=== PATIENT | male | born 1935 | race Caucasian/White ===

== ENCOUNTER 2023-12-27 12:38 | Emergency (ER) | payer MEDICARE, SELFPAY ==
[2023-12-27 12:45] VITALS: BP 121/53; PULSE 75; RESP 18; TEMP 36.6; O2SAT 100
--- NOTE | 2023-12-27 13:55 | ED.GENADULT ---
HPI - General Adult General Chief complaint: Unspecified Stated complaint: dialysis catheter fell out Time Seen by Provider: 12/27/23 13:30 History of Present Illness HPI narrative: Patient is an 88-year-old male who presents ER after dislodging his dialysis catheter from his right chest. He was removing his shirt when it pulled out. No bleeding. He is not on a blood thinner. Has an indwelling Delgadillo catheter and is making about 600 mL in a 24 hour. No fevers or chills or sweats. No difficulty breathing. Catheter originally placed at the fall. He has been seeing Dr. Parmar. Related Data Allergies Allergy/AdvReac Type Severity Reaction Status Date / Time bee pollen Allergy Anaphylactic Verified 12/27/23 12:40 Shock Review of Systems Review of Systems: All systems reviewed & are unremarkable except as noted in HPI and below Constitutional: Constitutional: Reports no additional constitutional complaints ENT: Reports system reviewed and no additional complaints, except as documented Cardiovascular: Cardiovascular: Reports no additional cardiovascular complaints Respiratory: Respiratory: Reports no additional respiratory complaints Genitourinary: Genitourinary: Reports no additional male genitourinary complaints [facility] Past Medical History Medical History (Updated 12/27/23 @ 16:30 by Vasile Simms MD) 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 HEAD: Normocephalic, atraumatic. ENT: Mucous membranes moist. CHEST: Clear to auscultation. No respiratory distress. dialysis catheter site with sutures still in place right upper chest wall without bleeding. HEART: Regular rate and rhythm. Normal peripheral pulses. ABDOMEN: Soft, nontender, nondistended. EXTREMITIES: Normal range of motion. No edema. Weakness left upper extremity that is chronic from shoulder infection. SKIN: Warm, dry, no rash. NEURO: Alert and oriented x3. PSYCH: Normal mood and affect. Course Course Emergency Course: discussed with nephrology as well as General surgery. Patient can have an outpatient dialysis catheter placed. Patient and family given reassurance and education. Will give contact information for General surgery. hold warfarin for home which has been relayed to family. Vital Signs Vital signs: Vital Signs Temperature 97.8 F 12/27/23 12:45 Pulse Rate 75 12/27/23 12:45 Respiratory Rate 18 12/27/23 12:45 Blood Pressure 121/53 L 12/27/23 12:45 Pulse Oximetry 100 12/27/23 12:45 Oxygen Delivery Room Air 12/27/23 12:45 Temperature 97.8 F 12/27/23 12:45 Pulse Rate 71 12/27/23 15:54 Respiratory Rate 20 12/27/23 15:54 Blood Pressure 150/74 H 12/27/23 15:54 Pulse Oximetry 100 12/27/23 15:54 Oxygen Delivery Room Air 12/27/23 12:45 Medical Decision Making Vital Signs Vital Signs: Vital Signs Temperature 97.8 F 12/27/23 12:45 Pulse Rate 75 12/27/23 12:45 Respiratory Rate 18 12/27/23 12:45 Blood Pressure 121/53 L 12/27/23 12:45 Pulse Oximetry 100 12/27/23 12:45 Oxygen Delivery Room Air 12/27/23 12:45 Temperature 97.8 F 12/27/23 12:45 Pulse Rate 71 12/27/23 15:54 Respiratory Rate 20 12/27/23 15:54 Blood Pressure 150/74 H 12/27/23 15:54 Pulse Oximetry 100 12/27/23 15:54 Oxygen Delivery Room Air 12/27/23 12:45 Lab Data 12/27/23 14:20 12/27/23 14:20 Labs: Lab Results 12/27/23 Range/Units 14:20 WBC 10.0 (4.5-10.0) K/mm3 RBC 2.52 L (4.6-6.20) M/mm3 Hgb 7.3 L (14.0-18.0) g/dL Hct 24.1 L (42.0-52.0) % MCV 95.6 (80-100) fl MCH 29.0 (26-34) pg MCHC 30.3 L (32-36) g/dl RDW 16.0 H (11.5-14.5) % Plt Count 428 H (150-375) k/mm3 MPV 8.4 (7.4-10.4) fl Immature Gran % (Auto) 0.6 H (0-0.5) % Neut %
[2023-12-27 14:33] LABS: Basophils Absolute Auto 0.1 K/mm3 (0.0-0.1); Basophils Percent Auto 0.5 % (0.2-1.2); Eosinophils Absolute Auto 0.2 K/mm3 (0-0.3); Hematocrit 24.1 % (42.0-52.0); Hemoglobin 7.3 g/dL (14.0-18.0); Immature Granulocyte Absolute 0.06 K/mm3 (0.00-0.031); Immature Granulocyte Percent A 0.6 % (0-0.5); Lymphocytes Absolute Auto 1.99 K/mm3 (0.9-3.2); Lymphocytes Percent Auto 19.9 % (18.3-44.2); Mean Corpuscular HGB Conc 30.3 g/dl (32-36); Mean Corpuscular Volume 95.6 fl (80-100); Mean Platelet Volume 8.4 fl (7.4-10.4); Monocytes Absolute Auto 0.9 K/mm3 (0.1-0.6); Monocytes Percent Auto 8.7 % (2.6-8.5); Neutrophils Absolute Auto 6.8 K/mm3 (1.3-6.7); Neutrophils Percent Auto 68.3 % (45.5-73.1); Platelet Count Result 428 k/mm3 (150-375); Red Blood Count 2.52 M/mm3 (4.6-6.20)
[2023-12-27 14:39] LABS: INR 1.4; Prothrombin Time 17.1 Seconds (11.1-14.7)
[2023-12-27 14:41] LABS: Alanine Aminotransferase 16 U/L (6-50); Albumin Level 2.5 g/dL (3.5-5.1); Alkaline Phosphatase 95 U/L (38-126); Anion Gap 0 mmol/L (4-12); Aspartate Amino Transferase 27 U/L (17-59); Bilirubin,Total 0.4 mg/dL (0.2-1.3); Blood Urea Nitrogen 24 mg/dL (9-20); Calcium 8.8 mg/dL (8.4-10.2); Carbon Dioxide 34 mmol/L (22-30); Chloride 102 mmol/L (98-107); Estimated CRCL calculation 21 ml/min; Estimated Glomerular Filt Rate 27; Glucose 138 mg/dL (65-110); Potassium 3.6 mmol/L (3.4-5.0); Sodium 136 mmol/L (137-145)
[2023-12-27 15:54] VITALS: BP 150/74; PULSE 71; RESP 20; O2SAT 100
== END 2023-12-27 16:43 | disposition home or self-care (01) ==
PROVIDERS: Emergency Provider Emergency Medicine; PCP Internal Medicine
DX: Z49.01 Encounter for fitting and adjustment of extracorporeal dialysis catheter (principal); N18.6 End stage renal disease; Z86.718 Personal history of other venous thrombosis and embolism; Z79.01 Long term (current) use of anticoagulants
CPT/HCPCS: 36415; 80053; 85025; 85610; 85730; 99283

== ENCOUNTER 2023-12-29 03:59 | Day surgery (SDC) | payer MEDICARE, SELFPAY ==
[2023-12-28 09:27] VITALS: BMI 23.3
--- NOTE | 2023-12-28 09:38 | PC.NURSE ---
Report to the Outpatient Waiting Room, entrance under the green pavilion located off [facility], at time _0600_ on date _[id number]_. Planned Procedure Time: _0730_.? Time changes happen often and if your time is changed the preop area will call you the afternoon before. - You and your visitor will be asked to self-screen and do not enter if you have any COVID symptoms. Please call surgeon if you need to reschedule. - A mask is optional within the hospital at this time. Patients may have clear liquids (water, carbonated beverages, clear teas, apple juice) until 3 hours prior to surgery with a maximum of 20 ounces. - No food from midnight until time of surgery and no smoking Take only the following medications with a SIP of water on the morning of surgery: __Metoprolol____ DO NOT STOP ANY OF YOUR OTHER PRESCRIPTION MEDICATIONS PRIOR TO SURGERY EXCEPT THE FOLLOWING Medications to discontinue per physician ___Took last dose of Warfarin [id number] Date to take last dose Please no make-up, nail yoruba, hairspray, perfume, deodorant, or body powder the day of surgery.? No jewelry (including any body piercings) or valuables the day of surgery, leave them at home.? Please take a shower or bath the night before, or the morning of, surgery with an antibacterial soap.? Wear comfortable, loose fitting clothing.? - Jewelry must be removed prior to entering the operating room.? Rings and piercings that are not removed may be cut off. - The hospital will not accept responsibility for valuables.? - Please leave all valuables, including medications, at home the day of surgery. If you are going home after surgery, a licensed motor vehicle escort driver must drive you home.? - NO public transportation without another adult if you receive anesthesia. - We recommend that an adult stay with you for 24 hours following discharge. - We also recommend that you do not drive, make important decision, drink alcoholic beverages, or take any drugs that were not prescribed by your health care provider for at least 24 hours after your discharge time. Follow any additional instructions given to you from your surgeon. Telephone instructions given to __Magnus/[place]__and asked if any additional questions and then verbalized understanding. Patient advised to call surgeon office or pre surgery nurse liaison [phone] if any additional questions.
--- NOTE | ~2023-12-29 | XR_ITS ---
EXAMINATION: XR fl guide central line place DATE: 12/29/2023 08:46 INDICATION: Central line placement. TECHNIQUE: 2 intraoperative fluoroscopic views of the chest were obtained. I was not present. Fluoros copy exposure time was 86 seconds. COMPARISON: None. FINDINGS: There is a left internal jugular central venous catheter with tip at superior cavoatrial ju nction. IMPRESSION: 1. Left internal jugular central venous catheter with tip at superior cavoatrial junction. Reviewed, dictated and finalized at location A. IMPRESSION: 1. Left internal jugular central venous catheter with tip at superior cavoatria l junction.
--- NOTE | ~2023-12-29 | XR_ITS ---
EXAMINATION: XR chest port-a-cath/central DATE: 12/29/2023 09:01 INDICATION: Central line placement. TECHNIQUE: A single frontal view of the chest was obtained on 2 radiographs. COMPARISON: None. FINDINGS: There is no pneumonia, pleural effusion, or pneumothorax. The heart size is normal. A left internal jugular central venous catheter is seen with tip in the proximal right atrium. IMPRESSION: 1. Central line tip in proximal right atrium. Reviewed, dictated and finalized at location A.
[2023-12-29 06:24] VITALS: BP 155/65; PULSE 75; RESP 18; TEMP 36.2; O2SAT 99
[2023-12-29] MEDS: SODIUM CHLORIDE 0.9% IV 500 ML 30 ML IV CONT (06:30)
[2023-12-29 07:01] LABS: INR 1.4; Prothrombin Time 17.5 Seconds (11.1-14.7)
--- NOTE | 2023-12-29 07:01 | P.PNAN_ITS ---
Anes - Initial Pre Proc Eval Procedure: Operation Date: 12/29/23 07:30 Proposed Procedures p Insertion Tunneled Dialysis Catheter - Sofia Aguayo MD Date/Time: 12/29/23 07:01 Surgeon: Sofia Aguayo MD Pre Op Diagnosis: dialysis catheter fell out Patient Data Age: 88 Gender: M Height: 1.75 m Weight: 71 kg Last Vital Signs Temp 97.2 F L 12/29/23 06:24 Pulse 75 12/29/23 06:24 Resp 18 12/29/23 06:24 BP 155/65 H 12/29/23 06:24 Pulse Ox 99 12/29/23 06:24 O2 Del Method Room Air 12/29/23 06:24 Allergies Allergy/AdvReac Type Severity Reaction Status Date / Time bee venom protein (honey bee) Allergy Anaphylaxis Verified 12/29/23 06:48 Home Medications Medication Instructions Recorded Confirmed Type atorvastatin 40 mg tablet 40 mg PO HS 12/28/23 12/29/23 History bumetanide 2 mg tablet 2 mg PO DAILY 12/28/23 12/29/23 History coenzyme Q10 100 mg capsule 200 mg PO DAILY 12/28/23 12/29/23 History (CoQ-10) finasteride 5 mg tablet 5 mg PO DAILY 12/28/23 12/29/23 History metoprolol tartrate 25 mg tablet 25 mg PO BID 12/28/23 12/29/23 History trazodone 50 mg tablet 50 mg PO HS 12/28/23 12/29/23 History warfarin 2.5 mg tablet 2.5 mg PO QPM 12/28/23 12/29/23 History Laboratory Tests 12/29/23 06:22 PT Pending INR Pending Patient hx anesthesia problems: none Family hx anesthesia problems: none Results Review: All pre-operative results and documents have been reviewed as part of the pre- operative evaluation. 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 DVT (deep venous thrombosis) Septic joint of left shoulder region Social History Social History Smoking status: Never smoker Living arrangements: with family Spiritual care concerns: No Anes - Eval Final PreProcedure Day of Procedure 12/29/23 07:01 Patient weight: normal Heart: regular rate and rhythm Lungs: clear to auscultation Airway: Mallampati scale class II Neurological: alert and oriented Last oral intake: >/= 8 hours ASA classification: III Emergent: no Anesthetic plan: proceed Anesthesia type and monitoring: general GIVS and standard monitoring Results Review: All pre-operative results and documents have been reviewed as part of the pre- operative evaluation. ESRD, last HD 3 days ago, CKD, hyperlipidemia. Informed Consent: The patient's anesthetic plan and its attendant risks and benefits were discussed with the patient/family/POA. Questions were solicited and answers provided to the satisfaction of the patient/family/POA.
--- NOTE | 2023-12-29 07:23 | SUR.PREOP ---
[address] SINHA WITH BE DOING HIS PROCEEDURE DUE TO DR MOLINA BEING SICK
--- NOTE | 2023-12-29 07:28 | WPDHPUPDATE1 ---
History and Physical Update Update Date/Time: 12/29/23 07:28 History and Physical has been reviewed, including an updated exam of the patient. There are NO changes in the patient's condition. Risks, benefits, and alternatives have been discussed and questions answered. Patient agrees to proceed with procedure.
--- NOTE | 2023-12-29 07:34 | PM.SD2 ---
Same Day Admit/Disch: HPI History of Present Illness Chief complaint: dialysis catheter fell out Narrative: Magnus Fan is a 88 year old male who has been on dialysis for 3 months when his original tunneled catheter came out 2 days ago. He is here for placement of a new tunneled CVC for dialysis. 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 DVT (deep venous thrombosis) Septic joint of left shoulder region Social History Social History Smoking status: Never smoker Living arrangements: with family Spiritual care concerns: No Same Day Admit/Disch: Med Pre-admit Medications Home Medications Medication Instructions Recorded Confirmed Type atorvastatin 40 mg tablet 40 mg PO HS 12/28/23 12/29/23 History bumetanide 2 mg tablet 2 mg PO DAILY 12/28/23 12/29/23 History coenzyme Q10 100 mg capsule 200 mg PO DAILY 12/28/23 12/29/23 History (CoQ-10) finasteride 5 mg tablet 5 mg PO DAILY 12/28/23 12/29/23 History metoprolol tartrate 25 mg tablet 25 mg PO BID 12/28/23 12/29/23 History trazodone 50 mg tablet 50 mg PO HS 12/28/23 12/29/23 History warfarin 2.5 mg tablet 2.5 mg PO QPM 12/28/23 12/29/23 History tramadol 50 mg tablet 50 mg PO Q6H PRN pain #10 tabs 12/29/23 Rx Review of Systems Review of Systems All systems reviewed & are unremarkable except as noted in HPI and below (HPI) Exam Const: General: comfortable, no acute distress, alert and awake HENMT: Head: normocephalic and atraumatic Mouth: Yes Normal oral and palatal mucosa present Eyes: Conjunctivae: conjunctivae normal Pupils: Equal, round and reactive pupils present EOM: EOMs intact bilaterally Neck: Neck: normal visual inspection, no lymphadenopathy, nontender, no JVD and other (cord palpable from tunnel tract right neck) Chest: Chest palpation & inspection: abnormal inspection of the chest (exit site near clavicle R with suture from 3 mo ago) Resp: Effort & Inspection: normal respiratory effort Auscultation: clear to auscultation bilaterally Cardio: Rate: regular rate Rhythm: regular rhythm Heart sounds: no gallops, no murmurs and no rubs GI: Inspection: non-distended GI Palp: Yes Soft to palpation, No Tenderness to palpation present (GI), No Hepatomegaly present and No Splenomegaly present Skin: Lesions: no lesions Rashes: no rashes Neuro: General: no focal motor deficits and CN's II-XI intact bilaterally Cranial nerves: Yes Equal, round and reactive pupils present, Yes Bilaterally intact EOM present, Yes facial symmetry and Yes Midline tongue present Speech: normal speech Motor exam (neuro): 5/5 motor strength present throughout and Motor abnormalities not present Extrem: General: no clubbing, cyanosis or edema and edema Psych: Affect: normal affect Thought process: Normal thought process present Insight: Good insight present (Psych) DS: Data Data Completed and Pending Labs on day of discharge: Labs from last 24 hours 12/29/23 06:22 PT 17.5 H INR 1.4 DS: Summary Time Spent with Patient Time attestation: Total time spent providing and/or coordinating discharge services: DS: Admitting Diagnosis Discharge Date 12/29/23 Admitting Diagnosis ESRD Inadequate venous access for dialysis--will place new tunneled CVC for dialysis using U/S and under fluoroscopy. Discussed and explained with patient and family. He agrees to go ahead. DS: Discharge Diagnosis Discharge Diagnosis (1) Admission for fitting and adjustment of vascular catheter: Code(s): Z45.2 - Encounter for adjustment and management of vascular access device Status: Acute Assessment and Plan: Left internal jugular tunneled dura flow catheter placed as an outpatient per Dr. Cordero (2) ESRD (end stage renal disease): Code(s): N18.6 - End stage renal disease Status: Acute Discharge Plan Discharge Patient Disposition: Home, Self-Care Discharge Instructions: Okay to proceed to dialysis today. No lifting over 15 lb with left arm for 1 week. Then as tolerated. Follow-up with Nephrology and dialysis unit. Call if bleeding, catheter malfunction, or other problems to Dr. Cordero. Stand Alone Forms: General Discharge Instructions Follow-up/Referrals: Juno,Jayden Patrick MD [Primary Care Provider] - Keep Reg. Scheduled Appt. Discharge Medications: New tramadol 50 mg tablet 50 mg PO Q6H PRN (Reason: pain) Qty: 10 0RF Continued atorvastatin 40 mg tablet 40 mg PO HS bumetanide 2 mg tablet 2 mg PO DAILY trazodone 50 mg tablet 50 mg PO HS warfarin 2.5 mg tablet 2.5 mg PO QPM finasteride 5 mg tablet 5 mg PO DAILY coenzyme Q10 [CoQ-10] 100 mg Capsule 200 mg PO DAILY metoprolol tartrate 25 mg tablet 25 mg PO BID
[2023-12-29] MEDS: ceFAZolin 2 GM/D5W 50 ML 2 GM/50 ML BAG IVPB (07:42)
[2023-12-29] MEDS: LIDO 1%/EPINEPHRINE 1:100,000 50 ML VIAL 30 ML INFILTRATE (08:17)
[2023-12-29] MEDS: HEPARIN SODIUM 5,000 UNITS/ML VIAL 5000 UNITS IRRIGATION (08:18)
[2023-12-29] MEDS: HEPARIN SODIUM, PORCINE 10,000 UNITS/10 ML VIAL 4000 UNITS IV PUSH (08:20)
[2023-12-29 08:47] VITALS: BP 134/56; PULSE 73; RESP 14; O2SAT 98
--- NOTE | 2023-12-29 09:08 | W.PM.PROC2 ---
Procedure Note - Detailed Date of Procedure 12/29/23 Pre-op Diagnosis ESRD, inadequate venous access for dialysis Post-op Diagnosis Same Procedure Performed Placement left internal jugular 36 cm dura flow tunneled central venous catheter using ultrasound and under fluoroscopy Surgeon Michael Cordero MD Splitting Machine Operator Chantel Nuñez [facility] Anesthesia General (G IV S) Indications Patient has been on dialysis for 3 months via a right internal jugular tunneled dialysis catheter. That catheter fell out while he was taking ensured off 2 days ago. He comes in now as an outpatient to proceed with placement of a new tunneled central venous catheter for dialysis later today. Findings Tip in the distal SVC right atrial junction Description of Procedure Patient was taken to surgery and anesthesia was introduced. The left neck and left upper chest were prepped and draped. Using ultrasound, the left internal jugular vein was visualized. Local was infiltrated. Attempts were made to cannulate the vein but we returned arterial blood. The needle was removed and pressure was held. We then used ultrasound and again visualized the left internal jugular vein. This time cannulation was successful and a guidewire passed readily. We then visualized the path of the guidewire with C-arm fluoroscopy and it was as expected. I then used the 36 cm dura flow catheter and mapped out its course on the patient's chest. Counter incisions were marked on the skin. Local anesthetic was infiltrated over each of the counter incisions. Small incisions were made there as well as at the exit site of the guidewire. I then tunneled the dura flow catheter from the upper chest incision retrograde up the neck and eventually out the same opening as the guidewire. I then passed serial dilators over the guidewire under fluoroscopy. The largest dilator with sheath was then passed over the guidewire and into the superior vena cava. The guidewire and introducer were then removed. The dura flow catheter was passed through the sheath and into the superior vena cava. Some slight positioning adjustments were made. All looked good. Under fluoroscopy the tip was in the distal SVC right atrial junction and the catheter had no kinks or other problems in its course. I then checked the catheter and it flushed easily with heparin and aspirated blood very easily as well. Both ports were checked. Final flush was passed through each port and each was capped. All the incisions made were then closed with subcuticular 4-0 Vicryl suture. The catheter was sutured to the skin with 3-0 nylon. The suture from the original catheter placement on the right side of the chest was removed. Each of the wounds were dressed with Xeroform gauze. Tegaderm transparent dressing was placed over the exit site of the guidewire. Patient was awakened and taken to the step-down unit in good condition. Sponge and needle counts were correct x2. By my review, the postoperative chest x-ray showed the catheter in good position with no pneumothorax or other problems. Implants 36 cm tunneled dura flow central venous catheter for dialysis Estimated Blood Loss -5 Drains No Packing No Pathology None sent Complications None Condition Stable Disposition Same day [facility] Billing Surgery - Charge Forward: Surgery Billing (Placement left internal jugular tunneled central venous catheter using ultrasound and under fluoroscopy.)
[2023-12-29 09:15] VITALS: BP 145/61; PULSE 64; RESP 14; O2SAT 96
[2023-12-29 09:35] VITALS: BP 139/66; PULSE 64; RESP 14; O2SAT 98
== END 2023-12-29 09:55 | disposition home or self-care (01) ==
PROVIDERS: Anesthesiology; Surgery; PCP Internal Medicine; Visit Provider Surgery
PROC: (CPT 36908; principal; 2023-12-29 07:30)
DX: Z45.2 Encounter for adjustment and management of vascular access device (principal); G89.18 Other acute postprocedural pain; N18.6 End stage renal disease; Z79.01 Long term (current) use of anticoagulants; Z86.718 Personal history of other venous thrombosis and embolism
CPT/HCPCS: 36561; 36415; 77001; 85610; C1750; J0690; J1100; J1644; J2003; J2004; J2405; J2704; J3010; J7030; J7040

== ENCOUNTER 2024-01-06 11:10 | Outpatient (CLI) | payer MEDICARE, SELFPAY ==
--- NOTE | ~2024-01-06 | US_ITS ---
EXAMINATION: US venous doppler UE DATE: 01/06/2024 11:45 INDICATION: Recent port catheter placement TECHNIQUE: Grayscale images without and with compression and Doppler images of the left upper extremi ty veins were obtained. COMPARISON: None. FINDINGS: There is a small amount of nonocclusive, noncompressible thrombus along side the central venous port catheter in the left internal jugular vein. The left subclavian vein, axillary vein, brachial vein, b asilic vein, cephalic vein, radial vein, and ulnar vein are patent. IMPRESSION: 1. Nonocclusive thrombus along side the central venous catheter in the left internal jugular vein. 2. Patent left upper extremity veins. No evidence of venous thrombosis. Reviewed, dictated and finalized at location A. IMPRESSION: 1. Nonocclusive thrombus along side the central venous catheter in the left int ernal jugular vein. 2. Patent left upper extremity veins. No evidence of venous thrombosis.
== END 2024-01-06 11:11 | disposition home or self-care (01) ==
PROVIDERS: PCP Internal Medicine; Visit Provider Surgery
DX: M79.89 Other specified soft tissue disorders (principal)
CPT/HCPCS: 93971

== ENCOUNTER 2024-01-06 12:13 | Emergency (ER) | payer MEDICARE, SELFPAY ==
[2024-01-06 12:40] VITALS: BP 134/86; PULSE 63; RESP 16; TEMP 36.5; O2SAT 99
--- NOTE | 2024-01-06 13:20 | ED_ITS ---
HPI - General Adult General Chief complaint: Unspecified <Rochelle Shea PA-C - Last Filed: 01/07/24 11:43> Stated complaint: port problems, neck and arm pain <Rochelle Shea PA-C - Last Filed: 01/07/24 11:43> Time Seen by Provider: 01/06/24 13:20 <Rochelle Shea PA-C - Last Filed: 01/07/24 11:43> Focused HPI: This is a 88 year old male that presents to the ER for abnormal outpatient US. Was told to come to the ER by Dr. Cordero for further evaluation. Had a dialysis port placed one week ago. Started to have swelling in the left arm. Also reports pain in the left side of his neck. Patient takes Warfarin. Denies or erythema. GENERAL: Well-appearing, well-nourished, and in no acute distress. HEAD: Normocephalic, atraumatic. CHEST: Clear to auscultation. ?No respiratory distress. HEART: Regular rate and rhythm.? NEURO: ?Alert and oriented x3. Patient screened in triage and initial orders placed.? ?Additional care and disposition to be based upon?diagnostic testing and treatment. <Rochelle Shea PA-C - Last Filed: 01/07/24 11:43> Focused HPI: This is a 88 year old male that presents to the ER for abnormal outpatient US. Was told to come to the ER by Dr. Cordero for further evaluation. Had a dialysis port placed one week ago. Started to have swelling in the left arm. Also reports pain in the left side of his neck. Patient takes Warfarin. Denies or erythema. GENERAL: Well-appearing, well-nourished, and in no acute distress. HEAD: Normocephalic, atraumatic. CHEST: Clear to auscultation. ?No respiratory distress. HEART: Regular rate and rhythm.? NEURO: ?Alert and oriented x3. Patient screened in triage and initial orders placed.? ?Additional care and disposition to be based upon?diagnostic testing and treatment. <Marcella Wheeler PA-C - Last Filed: 01/06/24 21:44> Source: patient <Marcella Wheeler PA-C - Last Filed: 01/06/24 21:44> Mode of arrival: ambulatory <Marcella Wheeler PA-C - Last Filed: 01/06/24 21:44> Limitations: no limitations <Marcella Wheeler PA-C - Last Filed: 01/06/24 21:44> History of Present Illness HPI narrative: Agree with above HPI. Patient takes 2.5 mg of warfarin daily. Last had his INR checked on 12/28 which was 1.4. Reports having increased pain and swelling in his left arm and left side of his neck over the last 2 days. Denies fevers, shortness of breath. States he had been on Wednesday, , Wednesday dialysis schedule, but last had an additional treatment yesterday. May be getting off of dialysis due to improving kidney function. <Marcella Wheeler PA-C - Last Filed: 01/06/24 21:44> Related Data Home medications: Home Medications Medication Instructions Recorded Confirmed atorvastatin 40 mg tablet 40 mg PO HS 12/28/23 12/29/23 bumetanide 2 mg tablet 2 mg PO DAILY 12/28/23 12/29/23 coenzyme Q10 100 mg capsule 200 mg PO DAILY 12/28/23 12/29/23 (CoQ-10) finasteride 5 mg tablet 5 mg PO DAILY 12/28/23 12/29/23 metoprolol tartrate 25 mg tablet 25 mg PO BID 12/28/23 12/29/23 trazodone 50 mg tablet 50 mg PO HS 12/28/23 12/29/23 warfarin 2.5 mg tablet 2.5 mg PO QPM 12/28/23 12/29/23 <Rochelle Shea PA-C - Last Filed: 01/07/24 11:43> Allergies/adverse reactions: Allergies Allergy/AdvReac Type Severity Reaction Status Date / Time bee venom protein (honey bee) Allergy Severe Anaphylaxis Verified 12/29/23 08:20 <Rochelle Shea PA-C - Last Filed: 01/07/24 11:43> Review of Systems Review of Systems: All systems reviewed & are unremarkable except as noted in HPI. 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 HEAD: Normocephalic, atraumatic. RESPIRATORY: Airway patent, respirations nonlabored. Clear to auscultation bilaterally, no rales, rhonchi, wheezing. CARDIOVASCULAR: Regular rate and rhythm without murmurs, rubs, or gallops. Radial pulses intact and easily palpable. MUSCULOSKELETAL: Moves all extremities. No gross deformities. Dialysis catheter in L upper chest without surrounding erythema or fluctuance. Diffuse swelling of LUE, some areas of pitting edema. No erythema or warmth of neck or arm. Sen sation intact. SKIN: Warm, dry, normal color. NEURO: A&O X3. Speech clear. Cranial nerves II-XII grossly intact. No ataxic movements. PSYCHIATRIC: Appropriate mood and affect. Normal interaction. <Marcella Wheeler PA-C - Last Filed: 01/06/24 21:44> Course Course Emergency Course: pharmacy called at approximately 9:00 a.m. on 01/07/2024. They do not have the Dosepak formulation in stock and are requesting to utilize 2.5 mg tablets but dosed appropriately. Verified and provided NPI number. (Dr Cleaning) <Nilda Cleaning MD - Last Filed: 01/07/24 09:00> [employer]/PA Physician Supervision I agree with midlevel documentation; I performed the medical decision making component of this evaluation. <Dacia Knapp MD - Last Filed: 01/07/24 00:06> Vital Signs Vital signs: Vital Signs Temperature 97.7 F 01/06/24 12:40 Pulse Rate 63 01/06/24 12:40 Respiratory Rate 16 01/06/24 12:40 Blood Pressure 134/86 01/06/24 12:40 Pulse Oximetry 99 01/06/24 12:40 Temperature 97.7 F 01/06/24 12:40 Pulse Rate 71 01/06/24 21:46 Respiratory Rate 16 01/06/24 21:46 Blood Pressure 172/86 H 01/06/24 21:46 Pulse Oximetry 97 01/06/24 21:46 <Rochelle Shea PA-C - Last Filed: 01/07/24 11:43> Vital Signs Temperature 97.7 F 01/06/24 12:40 Pulse Rate 63 01/06/24 12:40 Respiratory Rate 16 01/06/24 12:40 Blood Pressure 134/86 01/06/24 12:40 Pulse Oximetry 99 01/06/24 12:40 Temperature 97.7 F 01/06/24 12:40 Pulse Rate 71 01/06/24 21:46 Respiratory Rate 16 01/06/24 21:46 Blood Pressure 172/86 H 01/06/24 21:46 Pulse Oximetry 97 01/06/24 21:46 <Marcella Wheeler PA-C - Last Filed: 01/06/24 21:44> Vital Signs Temperature 97.7 F 01/06/24 12:40 Pulse Rate 63 01/06/24 12:40 Respiratory Rate 16 01/06/24 12:40 Blood Pressure 134/86 01/06/24 12:40 Pulse Oximetry 99 01/06/24 12:40 Temperature 97.7 F 01/06/24 12:40 Pulse Rate 71 01/06/24 21:46 Respiratory Rate 16 01/06/24 21:46 Blood Pressure 172/86 H 01/06/24 21:46 Pulse Oximetry 97 01/06/24 21:46 <Dacia Knapp MD - Last Filed: 01/07/24 00:06> Vital Signs Temperature 97.7 F 01/06/24 12:40 Pulse Rate 63 01/06/24 12:40 Respiratory Rate 16 01/06/24 12:40 Blood Pressure 134/86 01/06/24 12:40 Pulse Oximetry 99 01/06/24 12:40 Temperature 97.7 F 01/06/24 12:40 Pulse Rate 71 01/06/24 21:46 Respiratory Rate 16 01/06/24 21:46 Blood Pressure 172/86 H 01/06/24 21:46 Pulse Oximetry 97 01/06/24 21:46 <Nilda Cleaning MD - Last Filed: 01/07/24 09:00> Medical Decision Making MDM Narrative Medical decision making narrative: Sent to ED for nonocclusive thrombus of left internal jugular vein, found on outpatient ultrasound imaging today. Had dialysis catheter placed around 2 weeks ago. Currently on warfarin. Last INR last week was subtherapeutic at 1.4. Will obtain coags today to re-evaluate. INR today 1.6. Still subtherapeutic. Patient was recently started on warfarin within the last 3 months for a DVT in his lower extremity. Unclear why he was n ot started on a DOAC at that time. Possibly due to his acute kidney impairment however according to [employer] for treatment of a VTE, there is not dose adjustment required for any degree of kidney impairment. Patient reports he does not believe he will be continuing with dialysis. He may not need catheter at all. I discussed case with Dr. Kramer, general surgery on-call, advised to treat like any other blood clot. They can follow up to remove catheter if necessary at a later date. No indication for emergent removal at this time. Attempted to get a hold of patient's primary care doctor to discuss dose adjustments of warfarin/bridging potentially with Lovenox until he is at a therapeutic level versus starting a DOAC. Unable to get a hold of patient's primary care doctor. Attempted to contact office several times and left voicemails but received no call back. I do not feel comfortable adjusting patient's warfarin dose without appropriate discussion with primary to ensure adequate follow-up. Consulted with Dr. Morales, hospitalist, regarding options. Agrees with plan to start patient on Eliquis, Tx dose for VTE - 10mgBID X1week, 5mg BID. D/C warfarin. Close f/u with PCP. Patient does not have any other contraindications to taking Eliquis. He does not have history of AFib or previous mechanical heart valve. Patient is in agreement with this plan and feels comfortable going home on Eliquis. Given 1st dose of 10 mg in the ED. Given strict return precautions. D/C in stable condition. <Marcella Wheeler PA-C - Last Filed: 01/06/24 21:44> Medical Records Medical records reviewed: Yes I reviewed the external patient's medical records. <Marcella lanier PA-C - Last Filed: 01/06/24 21:44> Medical records narrative: EXAMINATION: US venous doppler UE DATE: 01/06/2024 11:45 INDICATION: Recent port catheter placement TECHNIQUE: Grayscale images without and with compression and Doppler images of the left upper extremity veins were obtained. COMPARISON: None. FINDINGS: There is a small amount of nonocclusive, noncompressible thrombus along side the central venous port catheter in the left internal jugular vein. The left subclavian vein, axillary vein, brachial vein, basilic vein, cephalic vein, radial vein, and ulnar vein are patent. IMPRESSION: 1. Nonocclusive thrombus along side the central venous catheter in the left internal jugular vein. 2. Patent left upper extremity veins. No evidence of venous thrombosis. <Rochelle Shea PA-C - Last Filed: 01/07/24 11:43> Vital Signs Vital Signs: Vital Signs Temperature 97.7 F 01/06/24 12:40 Pulse Rate 63 01/06/24 12:40 Respiratory Rate 16 01/06/24 12:40 Blood Pressure 134/86 01/06/24 12:40 Pulse Oximetry 99 01/06/24 12:40 Temperature 97.7 F 01/06/24 12:40 Pulse Rate 71 01/06/24 21:46 Respiratory Rate 16 01/06/24 21:46 Blood Pressure 172/86 H 01/06/24 21:46 Pulse Oximetry 97 01/06/24 21:46 <Rochelle Shea PA-C - Last Filed: 01/07/24 11:43> Vital Signs Temperature 97.7 F 01/06/24 12:40 Pulse Rate 63 01/06/24 12:40 Respiratory Rate 16 01/06/24 12:40 Blood Pressure 134/86 10/31/24 12:40 Pulse Oximetry 99 01/06/24 12:40 Temperature 97.7 F 01/06/24 12:40 Pulse Rate 71 01/06/24 21:46 Respiratory Rate 16 01/06/24 21:46 Blood Pressure 172/86 H 01/06/24 21:46 Pulse Oximetry 97 01/06/24 21:46 <Marcella Wheeler PA-C - Last Filed: 01/06/24 21:44> Vital Signs Temperature 97.7 F 01/06/24 12:40 Pulse Rate 63 01/06/24 12:40 Respiratory Rate 16 01/06/24 12:40 Blood Pressure 134/86 01/06/24 12:40 Pulse Oximetry 99 01/06/24 12:40 Temperature 97.7 F 01/06/24 12:40 Pulse Rate 71 01/06/24 21:46 Respiratory Rate 16 01/06/24 21:46 Blood Pressure 172/86 H 01/06/24 21:46 Pulse Oximetry 97 01/06/24 21:46 <Dacia Knapp MD - Last Filed: 01/07/24 00:06> Vital Signs Temperature 97.7 F 01/06/24 12:40 Pulse Rate 63 01/06/24 12:40 Respiratory Rate 16 01/06/24 12:40 Blood Pressure 134/86 01/06/24 12:40 Pulse Oximetry 99 01/06/24 12:40 Temperature 97.7 F 01/06/24 12:40 Pulse Rate 71 01/06/24 21:46 Respiratory Rate 16 01/06/24 21:46 Blood Pressure 172/86 H 01/06/24 21:46 Pulse Oximetry 97 01/06/24 21:46 <Nilda Cleaning MD - Last Filed: 01/07/24 09:00> Lab Data Lab results reviewed: Yes I reviewed the patient's lab results. <Marcella Wheeler PA-C - Last Filed: 01/06/24 21:44> Result diagrams: 01/06/24 16:01 <Rochelle Shea PA-C - Last Filed: 01/07/24 11:43> Labs: Lab Results 01/06/24 01/06/24 Range/Units 16:01 17:38 WBC 10.1 H (4.5-10.0) K/mm3 RBC 2.66 L (4.6-6.20) M/mm3 Hgb 8.0 L (14.0-18.0) g/dL Hct 25.1 L (42.0-52.0) % MCV 94.4 (80-100) fl MCH 30.1 (26-34) pg MCHC 31.9 L (32-36) g/dl RDW 15.9 H (11.5-14.5) % Plt Count 215 (150-375) k/mm3 MPV 8.6 (7.4-10.4) fl Immature Gran % (Auto) 0.3 (0-0.5) % Neut % (Auto) 67.7 (45.5-73.1) % Lymph % (Auto) 22.6 (18.3-44.2) % [place] % (Auto) 7.8 (2.6-8.5) % Eos % (Auto) 1.2 (0-4.4) % Baso % (Auto) 0.4 (0.2-1.2) % Lymph # (Auto) 2.28 (0.9-3.2) K/mm3 [place] # (Auto) 0.8 H (0.1-0.6) K/mm3 Eos # (Auto) 0.1 (0-0.3) K/mm3 Baso # (Auto) 0.0 (0.0-0.1) K/mm3 Abs Immat Gran (auto) 0.03 (0.00-0.031) K/mm3 Absolute Neuts (auto) 6.8 H (1.3-6.7) K/mm3 Absolute Nucleated RBC 0.000 (0.0-0.012) K/mm3 Nucleated RBC % 0.0 (0.0-0.2) % PT 19.6 H (11.1-14.7) Seconds INR 1.6 APTT 45.2 H (22.3-36.8) Seconds <Rochelle Shea PA-C - Last Filed: 01/07/24 11:43> Lab Results 01/06/24 01/06/24 Range/Units 16:01 17:38 WBC 10.1 H (4.5-10.0) K/mm3 RBC 2.66 L (4.6-6.20) M/mm3 Hgb 8.0 L (14.0-18.0) g/dL Hct 25.1 L (42.0-52.0) % MCV 94.4 (80-100) fl MCH 30.1 (26-34) pg MCHC 31.9 L (32-36) g/dl RDW 15.9 H (11.5-14.5) % Plt Count 215 (150-375) k/mm3 MPV 8.6 (7.4-10.4) fl Immature Gran % (Auto) 0.3 (0-0.5) % Neut % (Auto) 67.7 (45.5-73.1) % Lymph % (Auto) 22.6 (18.3-44.2) % [place] % (Auto) 7.8 (2.6-8.5) % Eos % (Auto) 1.2 (0-4.4) % Baso % (Auto) 0.4 (0.2-1.2) % Lymph # (Auto) 2.28 (0.9-3.2) K/mm3 [place] # (Auto) 0.8 H (0.1-0.6) K/mm3 Eos # (Auto) 0.1 (0-0.3) K/mm3 Baso # (Auto) 0.0 (0.0-0.1) K/mm3 Abs Immat Gran (auto) 0.03 (0.00-0.031) K/mm3 Absolute Neuts (auto) 6.8 H (1.3-6.7) K/mm3 Absolute Nucleated RBC 0.000 (0.0-0.012) K/mm3 Nucleated RBC % 0.0 (0.0-0.2) % PT 19.6 H (11.1-14.7) Seconds INR 1.6 APTT 45.2 H (22.3-36.8) Seconds <Marcella Wheeler PA-C - Last Filed: 01/06/24 21:44> Lab Results 01/06/24 01/06/24 Range/Units 16:01 17:38 WBC 10.1 H (4.5-10.0) K/mm3 RBC 2.66 L (4.6-6.20) M/mm3 Hgb 8.0 L (14.0-18.0) g/dL Hct 25.1 L (42.0-52.0) % MCV 94.4 (80-100) fl MCH 30.1 (26-34) pg MCHC 31.9 L (32-36) g/dl RDW 15.9 H (11.5-14.5) % Plt Count 215 (150-375) k/mm3 MPV 8.6 (7.4-10.4) fl Immature Gran % (Auto) 0.3 (0-0.5) % Neut % (Auto) 67.7 (45.5-73.1) % Lymph % (Auto) 22.6 (18.3-44.2) % [place] % (Auto) 7.8 (2.6-8.5) % Eos % (Auto) 1.2 (0-4.4) % Baso % (Auto) 0.4 (0.2-1.2) % Lymph # (Auto) 2.28 (0.9-3.2) K/mm3 [place] # (Auto) 0.8 H (0.1-0.6) K/mm3 Eos # (Auto) 0.1 (0-0.3) K/mm3 Baso # (Auto) 0.0 (0.0-0.1) K/mm3 Abs Immat Gran (auto) 0.03 (0.00-0.031) K/mm3 Absolute Neuts (auto) 6.8 H (1.3-6.7) K/mm3 Absolute Nucleated RBC 0.000 (0.0-0.012) K/mm3 Nucleated RBC % 0.0 (0.0-0.2) % PT 19.6 H (11.1-14.7) Seconds INR 1.6 APTT 45.2 H (22.3-36.8) Seconds <Dacia Knapp MD - Last Filed: 01/07/24 00:06> Lab Results 01/06/24 01/06/24 Range/Units 16:01 17:38 WBC 10.1 H (4.5-10.0) K/mm3 RBC 2.66 L (4.6-6.20) M/mm3 Hgb 8.0 L (14.0-18.0) g/dL Hct 25.1 L (42.0-52.0) % MCV 94.4 (80-100) fl MCH 30.1 (26-34) pg MCHC 31.9 L (32-36) g/dl RDW 15.9 H (11.5-14.5) % Plt Count 215 (150-375) k/mm3 MPV 8.6 (7.4-10.4) fl Immature Gran % (Auto) 0.3 (0-0.5) % Neut % (Auto) 67.7 (45.5-73.1) % Lymph % (Auto) 22.6 (18.3-44.2) % [place] % (Auto) 7.8 (2.6-8.5) % Eos % (Auto) 1.2 (0-4.4) % Baso % (Auto) 0.4 (0.2-1.2) % Lymph # (Auto) 2.28 (0.9-3.2) K/mm3 [place] # (Auto) 0.8 H (0.1-0.6) K/mm3 Eos # (Auto) 0.1 (0-0.3) K/mm3 Baso # (Auto) 0.0 (0.0-0.1) K/mm3 Abs Immat Gran (auto) 0.03 (0.00-0.031) K/mm3 Absolute Neuts (auto) 6.8 H (1.3-6.7) K/mm3 Absolute Nucleated RBC 0.000 (0.0-0.012) K/mm3 Nucleated RBC % 0.0 (0.0-0.2) % PT 19.6 H (11.1-14.7) Seconds INR 1.6 APTT 45.2 H (22.3-36.8) Seconds <Nilda Cleaning MD - Last Filed: 01/07/24 09:00> Discharge Plan Discharge Clinical Impression: Internal jugular (IJ) vein thromboembolism, acute Qualifiers: Laterality: left Qualified Code(s): I82.C12 - Acute embolism and thrombosis of left internal jugular vein <Rochelle Shea PA-C - Last Filed: 01/07/24 11:43> Patient Disposition: Home, Self-Care <Rochelle Shea PA-C - Last Filed: 01/07/24 11:43> Condition: Stable <Rochelle Shea PA-C - Last Filed: 01/07/24 11:43> Instructions: Antibiotic Form, Deep Vein Thrombosis (ED), Venous Thromboembolism (ED) <Rochelle Shea PA-C - Last Filed: 01/07/24 11:43> Additional Instructions: Take Eliquis as prescribed. You will be on 10 mg twice daily for the 1st one week, followed by 5 mg twice daily. Discontinue warfarin use. Call your primary care doctor tomorrow and inform of ED visit and make follow up appointment. Return to the ED if you experience worsening or severe pain, numbness of arm, difficulty breathing or shortness of breath, chest pain, or any other symptoms of concern. <Rochelle Shea PA-C - Last Filed: 01/07/24 11:43> Prescriptions: New Eliquis DVT-PE Treat 30D Start 5 mg (74 tabs) tablets,dose pack See Rx Instructions .ROUTE .COMPLEX Qty: 74 0RF Rx Instructions: orally per package directions No Action atorvastatin 40 mg tablet 40 mg PO HS bumetanide 2 mg tablet 2 mg PO DAILY trazodone 50 mg tablet 50 mg PO HS warfarin 2.5 mg tablet 2.5 mg PO QPM finasteride 5 mg tablet 5 mg PO DAILY coenzyme Q10 [CoQ-10] 100 mg Capsule 200 mg PO DAILY metoprolol tartrate 25 mg tablet 25 mg PO BID tramadol 50 mg tablet 50 mg PO Q6H PRN (Reason: pain) Qty: 10 0RF <Rochelle Shea PA-C - Last Filed: 01/07/24 11:43> Follow-up/Referrals: Green,Jayden Patrick MD [Primary Care Provider] - <Rochelle Shea PA-C - Last Filed: 01/07/24 11:43> Time of Disposition: 21:14 <ELDA Alexander Last Filed: 01/07/24 11:43> 21:14 <Marcella Wheeler PA-C - Last Filed: 01/06/24 21:44> 21:14 <Dacia Knapp MD - Last Filed: 01/07/24 00:06> 21:14 <Nilda Cleaning MD - Last Filed: 01/07/24 09:00>
[2024-01-06 16:07] LABS: Basophils Percent Auto 0.4 % (0.2-1.2); Eosinophils Absolute Auto 0.1 K/mm3 (0-0.3); Eosinophils Percent Auto 1.2 % (0-4.4); Hematocrit 25.1 % (42.0-52.0); Immature Granulocyte Absolute 0.03 K/mm3 (0.00-0.031); Immature Granulocyte Percent A 0.3 % (0-0.5); Lymphocytes Absolute Auto 2.28 K/mm3 (0.9-3.2); Lymphocytes Percent Auto 22.6 % (18.3-44.2); Mean Corpuscular HGB Conc 31.9 g/dl (32-36); Mean Corpuscular Hemoglobin 30.1 pg (26-34); Mean Corpuscular Volume 94.4 fl (80-100); Mean Platelet Volume 8.6 fl (7.4-10.4); Monocytes Absolute Auto 0.8 K/mm3 (0.1-0.6); Monocytes Percent Auto 7.8 % (2.6-8.5); Neutrophils Absolute Auto 6.8 K/mm3 (1.3-6.7); Neutrophils Percent Auto 67.7 % (45.5-73.1); Platelet Count Result 215 k/mm3 (150-375); Red Blood Count 2.66 M/mm3 (4.6-6.20); Red Cell Distribution Width 15.9 % (11.5-14.5); White Blood Count 10.1 K/mm3 (4.5-10.0)
[2024-01-06 17:00] VITALS: BP 194/91; PULSE 64; RESP 16; O2SAT 99
[2024-01-06 17:51] LABS: INR 1.6; Prothrombin Time 19.6 Seconds (11.1-14.7)
[2024-01-06 17:53] LABS: Partial Thromboplastin Time 45.2 Seconds (22.3-36.8)
[2024-01-06 19:23] VITALS: BP 175/75; PULSE 65; RESP 14; O2SAT 98
--- NOTE | 2024-01-06 19:40 | PC.NURSE ---
Pt consistently 100% on BiPAP. Lung sounds clear bilaterally. Md Tatum notified of pt improvement. Per MD, BiPAP can be removed at this time and placed on NC. Pt tolerated this very well. Breathing regular and unlabored upon BiPAP removal.
[2024-01-06] MEDS: APIXABAN 5 MG TABLET 10 MG PO (21:32)
[2024-01-06 21:46] VITALS: BP 172/86; PULSE 71; RESP 16; O2SAT 97
== END 2024-01-06 21:50 | disposition home or self-care (01) ==
PROVIDERS: Physician Assistant; Emergency Provider Physician Assistant; PCP Internal Medicine
DX: I82.C12 Acute embolism and thrombosis of left internal jugular vein (principal); Z79.01 Long term (current) use of anticoagulants; N18.9 Chronic kidney disease, unspecified; Z99.2 Dependence on renal dialysis; Z86.718 Personal history of other venous thrombosis and embolism
CPT/HCPCS: 36415; 85025; 85610; 85730; 99283; A9270

== ENCOUNTER 2024-02-17 01:44 | Day surgery (SDC) | payer MEDICARE, SELFPAY ==
--- NOTE | 2024-02-07 15:13 | PC.NURSE ---
Report to the Outpatient Waiting Room, entrance under the green pavilion located off [facility], at time _12 noon on date _02/17/24 . Planned Procedure Time: _2 pm .? Time changes happen often and if your time is changed the preop area will call you the afternoon before. - You and your visitor will be asked to self-screen and do not enter if you have any COVID symptoms. Please call surgeon if you need to reschedule. - A mask is optional within the hospital at this time. Patients may have clear liquids (water, carbonated beverages, clear teas, apple juice) until 3 hours prior to surgery( 11 am) with a maximum of 20 ounces. - No food from midnight until time of surgery and no smoking. This includes no chewing gum, candy or mints. - Infants may have breast milk until 4 hours before surgery, infant formula 6 hours prior to surgery. - Children will be allowed to drink immediately following surgery.? If applicable, please bring a bottle or sippy cup to assist with drinking. Juice, water, soda, and popsicles are readily available.? For infants on formula, please bring formula the day of surgery.? Pacifiers are allowed. Take only the following medications with a SIP of water on the morning of surgery: _metoprolol DO NOT STOP ANY OF YOUR OTHER PRESCRIPTION MEDICATIONS PRIOR TO SURGERY EXCEPT THE FOLLOWING Medications to discontinue per physician __eliquis per dr woodard ( will call) hold all vitamins 3 days pre op .last dose 02/13/24 Please no make-up, nail greek, hairspray, perfume, deodorant, or body powder the day of surgery.? No jewelry (including any body piercings) or valuables the day of surgery, leave them at home.? Please take a shower or bath the night before, or the morning of, surgery with an antibacterial soap.? Wear comfortable, loose fitting clothing.? Children are encouraged to wear pajamas. - Jewelry must be removed prior to entering the operating room.? Rings and piercings that are not removed may be cut off. - The hospital will not accept responsibility for valuables.? - Please leave all valuables, including medications, at home the day of surgery. If you are going home after surgery, a licensed garbage collector driver must drive you home.? - NO public transportation without another adult if you receive anesthesia. - We recommend that an adult stay with you for 24 hours following discharge. - We also recommend that you do not drive, make important decision, drink alcoholic beverages, or take any drugs that were not prescribed by your health care provider for at least 24 hours after your discharge time. For Pediatric surgeries, we recommend two adults accompany the child home. Follow any additional instructions given to you from your surgeon. Telephone instructions given to _pt's nancy and asked if any additional questions and then verbalized understanding. Patient advised to call surgeon office or pre surgery nurse liaison [phone] if any additional questions.
[2024-02-07 15:32] VITALS: BMI 24.3
--- NOTE | 2024-02-15 15:59 | P.SS_ITS ---
Same Day Admit/Disch: HPI History of Present Illness Chief complaint: Hemodialysis catheter no longer needed Narrative: Magnus Fan is a 88 year old male who developed acute on chronic kidney injury and required hemodialysis. He had a right-sided tunneled central venous catheter placed last September. He was undergoing dialysis without difficulty but then and December, the catheter came out while he was removing his shirt. He had a new left internal jugular tunneled central venous catheter for dialysis placed on 12/29/2023. About 1 week following placement, he began noticing some left arm swelling and left-sided neck discomfort. Venous Doppler showed some nonocclusive, noncompressible clot along the catheter in the left internal jugular vein. The left subclavian and left axillary veins were free of clot and widely patent. All other left arm veins that were imaged were also patent and free of clot. Patient was started on apixaban. His renal function continued to improve and he no longer needs dialysis. His Eliquis has been held and he is taken to surgery at this time for removal of his tunneled left internal jugular vein central venous catheter. 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 Septic joint of left shoulder region DVT (deep venous thrombosis) Surgical History Surgical History History of arthroplasty of left shoulder H/O umbilical hernia repair S/P hemodialysis catheter insertion Social History Social History Smoking status: Never smoker Alcohol intake: never Substance use: never Living arrangements: with family Spiritual care concerns: No Same Day Admit/Disch: Med Pre-admit Medications Home Medications ?Medication ?Instructions ?Recorded ?Confirmed ?Type atorvastatin 40 mg tablet 40 mg PO HS 12/28/23 02/17/24 History bumetanide 2 mg tablet 2 mg PO DAILY 12/28/23 02/17/24 History coenzyme Q10 100 mg capsule 200 mg PO DAILY 12/28/23 02/17/24 History (CoQ-10) finasteride 5 mg tablet 5 mg PO DAILY 12/28/23 02/17/24 History metoprolol tartrate 25 mg tablet 25 mg PO BID 12/28/23 02/17/24 History tramadol 50 mg tablet 50 mg PO Q6H PRN pain #10 tabs 12/29/23 02/07/24 Rx apixaban 5 mg (74 tabs) tablets in See Rx Instructions PO .COMPLEX 01/06/24 02/17/24 Rx a dose pack ([employer] DVT-PE Treat #74 ea 30D Start) multivitamin 1 tablet PO DAILY 02/07/24 02/17/24 History Review of Systems Review of Systems All systems reviewed & are unremarkable except as noted in HPI and below (HPI) Exam Const: General: comfortable, no acute distress, alert and awake HENMT: Head: normocephalic and atraumatic Mouth: Yes Normal oral and palatal mucosa present Eyes: Conjunctivae: conjunctivae normal Pupils: Equal, round and reactive pupils present EOM: EOMs intact bilaterally Neck: Neck: normal visual inspection, no lymphadenopathy and nontender Chest: Chest palpation & inspection: abnormal inspection of the chest (Left sided tunneled central venous catheter noted), no crepitus, no masses, no tenderness and No rash Resp: Effort & Inspection: normal respiratory effort Auscultation: clear to auscultation bilaterally Cardio: Rate: regular rate Rhythm: regular rhythm Heart sounds: no gallops, no murmurs and no rubs GI: Inspection: non-distended GI Palp: Yes Soft to palpation, No Tenderness to palpation present (GI), No Hepatomegaly present and No Splenomegaly present Skin: Lesions: no lesions Rashes: no rashes Neuro: General: no focal motor deficits and CN's II-XI intact bilaterally Cranial nerves: Yes Equal, round and reactive pupils present, Yes Bilaterally intact EOM present, Yes facial symmetry and Yes Midline tongue present Speech: normal speech Motor exam (neuro): 5/5 motor strength present throughout and Motor abnormalities not present Extrem: General: no clubbing, cyanosis or edema and edema Psych: Affect: normal affect Thought process: Normal thought process present Insight: Good insight present (Psych) DS: Summary Time Spent with Patient Time attestation: Total time spent providing and/or coordinating discharge services: DS: Admitting Diagnosis Discharge Date 02/17/2024 Admitting Diagnosis * Acute on chronic renal failure-improved such that patient does not require d ialysis at this time. * Left IJ tunneled central venous catheter for dialysis no longer needed-plan to remove under anesthesia in the operating room as an outpatient. The procedure, risks, benefits and alternatives have been discussed. All questions were answered. He understands and agrees to go ahead. * Nonocclusive thrombus associated with the left internal jugular catheter-no longer symptomatic while on anticoagulation. Recommend continuing Eliquis another month and then discontinue. DS: Discharge Diagnosis Discharge Diagnosis (1) Vascular access not needed: Status: Acute Assessment and Plan: Left internal jugular tunneled dura flow central venous catheter removed 02/17/[address] Cordero Discharge Plan Discharge Patient Disposition: Home, Self-Care Discharge Instructions: * Resume normal activities * Okay to drive tomorrow * Can remove Band-Aid tomorrow and shower. Can replace Band-Aid or leave open if wound is dry. * Surgical adhesive or glue present over small incision. This should become loose in 2-3 weeks and can be removed when easy to pull off. * Take Tylenol as needed for any postoperative pain. This should be minimal. * No follow-up with Dr. Cordero needed unless problems or questions. Patient Language: Croatian Stand Alone Forms: General Discharge Instructions Follow-up/Referrals: Green,Jayden Patrick MD [Primary Care Provider] - Keep Reg. Scheduled Appt. Discharge Medications: Continued atorvastatin 40 mg tablet 40 mg PO HS bumetanide 2 mg tablet 2 mg PO DAILY finasteride 5 mg tablet 5 mg PO DAILY coenzyme Q10 [CoQ-10] 100 mg Capsule 200 mg PO DAILY metoprolol tartrate 25 mg tablet 25 mg PO BID tramadol 50 mg tablet 50 mg PO Q6H PRN (Reason: pain) Qty: 10 0RF multivitamin Tablet 1 tablet PO DAILY Held Eliquis DVT-PE Treat 30D Start 5 mg (74 tabs) tablets,dose pack See Rx Instructions .ROUTE .COMPLEX Qty: 74 0RF Hold Instructions: Resume on 02/19/24. Rx Instructions: orally per package directions
[2024-02-17] MEDS: LACTATED RINGERS 1,000 ML 30 ML IV CONT (12:45)
[2024-02-17 13:23] VITALS: BMI 22.8
[2024-02-17 13:28] VITALS: BP 164/75; PULSE 63; RESP 16; TEMP 36.8; O2SAT 99
--- NOTE | 2024-02-17 13:41 | WPDHPUPDATE1 ---
History and Physical Update Update Date/Time: 02/17/24 13:41 History and Physical has been reviewed, including an updated exam of the patient. There are NO changes in the patient's condition. Risks, benefits, and alternatives have been discussed and questions answered. Patient agrees to proceed with procedure.
--- NOTE | 2024-02-17 14:59 | WPDANESEPPF ---
Anes - Initial Pre Proc Eval Procedure: Operation Date: 02/17/24 14:00 Proposed Procedures p Removal Tunneled Dialysis Catheter - Michael Cordero MD Date/Time: 02/17/24 14:59 Surgeon: Michael Cordero MD Pre Op Diagnosis: Hemodialysis catheter no longer needed Patient Data Age: 88 Gender: M Height: 1.75 m Weight: 70.4 kg Last Vital Signs Temp 36.8 C 02/17/24 13:28 Pulse 63 02/17/24 13:28 Resp 16 02/17/24 13:28 BP 164/75 H 02/17/24 13:28 Pulse Ox 99 02/17/24 13:28 Allergies Allergy/AdvReac Type Severity Reaction Status Date / Time bee venom protein (honey bee) Allergy Severe Anaphylaxis Verified 02/07/24 15:08 Home Medications ?Medication ?Instructions ?Recorded ?Confirmed ?Type atorvastatin 40 mg tablet 40 mg PO HS 12/28/23 02/17/24 History bumetanide 2 mg tablet 2 mg PO DAILY 12/28/23 02/17/24 History coenzyme Q10 100 mg capsule 200 mg PO DAILY 12/28/23 02/17/24 History (CoQ-10) finasteride 5 mg tablet 5 mg PO DAILY 12/28/23 02/17/24 History metoprolol tartrate 25 mg tablet 25 mg PO BID 12/28/23 02/17/24 History tramadol 50 mg tablet 50 mg PO Q6H PRN pain #10 tabs 12/29/23 02/07/24 Rx apixaban 5 mg (74 tabs) tablets in See Rx Instructions PO .COMPLEX 01/06/24 02/17/24 Rx a dose pack (Eliquis DVT-PE Treat #74 ea 30D Start) multivitamin 1 tablet PO DAILY 02/07/24 02/17/24 History Patient hx anesthesia problems: none Family hx anesthesia problems: none Results Review: All pre-operative results and documents have been reviewed as part of the pre-operative evaluation. 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 Septic joint of left shoulder region DVT (deep venous thrombosis) Surgical History Surgical History History of arthroplasty of left shoulder H/O umbilical hernia repair S/P hemodialysis catheter insertion Social History Social History Smoking status: Never smoker Alcohol intake: never Substance use: never Living arrangements: with family Spiritual care concerns: No Anes - Eval Final PreProcedure Day of Procedure 02/17/24 14:59 Patient weight: normal Heart: regular rate and rhythm Lungs: clear to auscultation Airway: Mallampati scale class II Neurological: alert and oriented Last oral intake: >/= 8 hours ASA classification: III Emergent: no Anesthetic plan: proceed Anesthesia type and monitoring: general GIVS and standard monitoring Results Review: All pre-operative results and documents have been reviewed as part of the pre-operative evaluation. Informed Consent: The patient's anesthetic plan and its attendant risks and benefits were discussed with the patient/family/POA. Questions were solicited and answers provided to the satisfaction of the patient/family/POA.
[2024-02-17] MEDS: ceFAZolin 2 GM/D5W 50 ML 2 GM/50 ML BAG IVPB (15:28)
[2024-02-17] MEDS: BUPIVACAINE/EPINEPHRINE 0.5% 50 ML VIAL 30 ML INFILTRATE (15:43)
[2024-02-17 16:00] VITALS: BP 166/76; PULSE 66; RESP 16; O2SAT 100
[2024-02-17 16:30] VITALS: BP 177/69; PULSE 68
[2024-02-17 17:00] VITALS: BP 172/73; PULSE 66
--- NOTE | 2024-02-17 17:08 | W.PM.PROC2 ---
Procedure Note - Detailed Date of Procedure 02/17/24 Pre-op Diagnosis Hemodialysis catheter no longer needed Post-op Diagnosis Same Procedure Performed Removal left internal jugular tunneled dura flow central venous catheter Surgeon Michael Cordero MD [facility] Anesthesia MAC and Local Indications Patient kidney function has improved such that he no longer needs hemodialysis. Findings None significant. Description of Procedure Patient was taken to the operating room and placed in a supine position. The left subclavian and left neck areas were prepped and draped. The sutures holding the central venous catheter to the skin were cut. I gently place traction on the catheter but the cuff was holding it securely in place. I then identified the cuff and infiltrated local anesthetic over the cuff. Incision was made and I dissected down to the catheter and the cuff. I carefully dissected the cuff and the catheter away from the subcutaneous and any fibrous encapsulation associated with the cuff and catheter. I was then able to pull the cuff up in the wound. I cut the catheter on the proximal side of the cuff and removed the catheter from the skin. I then removed the rest of the catheter that proceeded to the intravenous limb without difficulty. Some pressure was held over the left internal jugular vein. After that there was no bleeding. The catheter was discarded. The incision was closed in layers with 4-0 Vicryl suture. The exit site and suture site where the catheter exited looked good. This area was dressed with a Band-Aid. The incision site was dressed with Exofin surgical adhesive. Patient was awakened and taken to outpatient surgery in good condition. Sponge needle counts were correct x2. Estimated Blood Loss -2 Drains No Packing No Pathology None sent Complications None Condition Stable Disposition Same day [facility] Billing Surgery - Charge Forward: Surgery Billing (Removal tunneled central venous catheter for dialysis-no reservoir)
== END 2024-02-17 17:15 | disposition home or self-care (01) ==
PROVIDERS: PCP Internal Medicine; Visit Provider Surgery
PROC: (CPT 49422; principal; 2024-02-17 14:00)
DX: Z49.01 Encounter for fitting and adjustment of extracorporeal dialysis catheter (principal); I25.10 Atherosclerotic heart disease of native coronary artery without angina pectoris; E78.5 Hyperlipidemia, unspecified; N40.0 Benign prostatic hyperplasia without lower urinary tract symptoms; Z86.718 Personal history of other venous thrombosis and embolism; Z79.01 Long term (current) use of anticoagulants
CPT/HCPCS: 36589; J0690; J2003; J2704; J3010; J7120

== ENCOUNTER 2024-07-09 14:51 | Emergency (ER) | payer MEDICARE, SELFPAY ==
--- OUTSIDE RECORDS SUMMARY | 2024-07-09 14:53 | XMS_ITS | Encounter Summary ---
Author Organization [facility] Healthcare Address [address] [place] [address] Care Team Providers Care Rib Bender Name Role Phone Ren Fraire MD Primary Care Provider + Encounter Details Date Type Department Care Team (Late st Contact Info) Description 09/30/2023 Hospital Encounter [facility] ADMIT [address] [place] [address] Kem Guzman MD [address] [facility] [address] [place] [address] Social History Tobacco Use Types Packs/Day Years Used Date Smoking Tobacco: Never Smokeless Tobacco: Never Alcohol Use Standard Drinks/Week Comments No 0 (1 standard drink = 0.6 oz pur e alcohol) AUDIT-C Answer Date Recorded Q1: How often do you have a drink containing alcohol? Never 09/25/2023 Q2: How many drinks containi ng alcohol do you have on a typical day when you are drinking? Patient does not drink Frequency of Binge Drinking Not on file 09/06 Personal Safety Answer Date Recorded Have you ever been in or are you currently in a harmful physical or emotional relationship or is someone making you feel afraid or unsafe? Denies 09/25/2023 Sex and Gender Information Value Date Recorded Sex Assigned at Not on file Legal Sex Male 2:18 PM [employer] Gender Identity Not on file Sexual Orientation Not on file documented as of this encounter Miscellaneous Notes * Significant Event - Kem Guzman MD - 09/30/2023 3:38 PM CDT Outside Hospital Transfer Note Division of Hospital Medicine Call Participants Referring hospital or service: [facility] Referring provider: Immanuel Ley DO Other providers: N/A Clinical Info Reason for Transfer: Procedure and Specialist Consult History: 87-year-old male with history of CAD, BPH, kidney stones who presented initially with neckand left shoulder pain/weakness who was found on admission with severe ROB associated with hydronephrosis, which has since improved with Delgadillo placement. However, labs notable for persistent, worsening leukocytosis as well as ongoing L shoulder pain, for which blood cultures were obtained and positive for MSSA. MRI L shoulder significant for moderate-size L shoulder effusion with synovitis as well as L rotator cuff tear involving the posterior spinatus. Arthrocentesis of the L shoulder performed notable for 178K nucleated cells, 98% neutrophils, Gram stain positive for GPC's. ID has been following for antibiotic assistance, though no shoulder orthopedic surgeon available at [facility] at this time. Case [facility] with [facility] orth[facility] who recommended transfer to medicine with orthopedic surgery consultation. Vitals: T 36.8, HR 110s, BP 120/52, RR 20, SpO2 95% on RA. Labs: WBC 19.7, Hgb 11.5, Plt 110, INR 1.72, Cr 1.61, BUN 83, Na 132, CRP 208, ESR 46. Blood cultures 09/27 and 09/28 positive for MSSA. L shoulder synovial fluid cultures with GPCs. Imaging: MRI L shoulder with moderate-sized left shoulder effusion with synovitis, L rotator cuff tendinopathy with superimposed tear of the posterior supraspinatus. MRI L-spine with mostly degenerative disease. TTE and EMMY negative for vegetations. Does patient consent to transfer: Yes Is the patient established with any [facility] providers?: No Problem list and anticipated needs upon transfer: 1. 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 Outcome Primary service: Med Pool Urgency: High Information reflected above was gathered from referring provider and/or chart review. I have not seen or examined this patient. Kem Guzman MD Medicine Triage Attending documented in this encounter Plan of Treatment Not on file documented as of this encounter Visit Diagnoses Not on filedocumented in this encounter Care Teams Rib Bender Relationship Specialty Start Date End Date Ren Fraire MD [address] [place] [id number] PCP - General 06/05/16 documented as of this encounter
--- OUTSIDE RECORDS SUMMARY | 2024-07-09 14:53 | XMS_ITS | Clinical Summary ---
Author Organization [facility] Address [address] [place] [address] Care Team Providers Care Retail Reset Merchandiser Name Role Phone Ren Fraire MD Primary Care Provider [phone] Source Comments [facility],non-[facility] Affiliates and Associated Physician Practices is amultiple site organization consisting of ambulatory clinics and hospital sitesin [place], [place], [place] and [place]. This disclosure is being madepursuant to the Care Everywhere program and may not contain all information available regarding this patient. Last updated 17.[facility] [employer] Allergies Active Allergy Reactions Criticality Noted Date Comments Bee Venom Anaphylaxis High 09/25/2023 Medications * Be aware that medications may not be up to date on this document. Alwaysverify current medications with the patient. tamsulosin (Flomax) 0.4 MG capsule Take 1 (one) capsule by mouth once daily At the same time every day after a meal. Active traMADol (Ultram) 50 MG tablet Take 1 (one) tablet by mouth every 6 hours as needed for Pain Active atorvastatin (Lipitor) 40 MG tablet Take 1 (one) tablet by mouth at bedtime Active multivitamin daily tablet Take 1 (one) tablet by mouth daily with food Active Coenzyme Q10 (Co Q 10) 100 MG Take 1 (one) capsule by mouth 2 times daily Active calcium carbonate (Tums) 500 MG chew tablet Take 2 (two) tablets by mouth every 4 hours as needed Active warfarin (Coumadin) 2 MG tablet Take 1 (one) tablet by mouth once daily 4 Active metoprolol tartrate IR (Lopressor) 25 MG tablet Take 1 (one) tablet by mouth every 8 hours 4 Active lidocaine (Lidoderm) 5 % patch Apply 2 (two) patches to skin every 24 hours Apply patch to most painful area and remove after 12 hours. May reapply a new patch 12 hours later. 4 Active zinc oxide (Desitin) 40 % pasteIndications :Skin Irritation,Wound Care,Wound Healing Apply to affected area once daily Reasons: Skin Irritation, Wound Care, Wound Healing 4 Active bumetanide (Bumex) 2 MG tablet Take 1 (one) tablet by mouth once daily 4 Active senna (Senokot Extra Strength) 17.2 MG Take 17.2 mg by mouth once daily 4 Active sevelamer carbonate (Renvela) 0.8 GM pwd packet Take 1 (one) packet by mouth 3 times daily with meals 4 Active finasteride (Proscar) 5 MG tabletIndication s:Benign prostatic hyperplasia with urinary retention Take 1 (one) tablet by mouth once daily 90 tablet 3 4 11/24/19 25 Active traZODone (Desyrel) 50 MG tablet Take 1 (one) tablet by mouth at bedtime Active LINEZOLID PO Active Active Problems Problem Noted Date Diagnosed Date Acute deep vein thrombosis ( DVT) of distal vein of left lower extremity 11/03/2023 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 10/28/2023 ESRD (end stage renal disease) 10/21/2023 ROB (acute kidney injury) 10/03/2023 Hyperkalemia 10/03/2023 High anion gap metabolic acidosis 10/03/2023 Toxic metabolic encephalopathy 10/03/2023 Obstructive uropathy 10/03/2023 Hydronephrosis 10/03/2023 Acute DVT (deep venous thrombosis) 10/03/2023 Coagulopathy 10/03/2023 Anemia 10/03/2023 Hypoalbuminemia 10/03/2023 Hyponatremia 10/03/2023 Pancreatitis 10/03/2023 CAD (coronary artery disease) 10/03/2023 Tachycardia 10/03/2023 Pyogenic arthritis of left s houlder region, due to unspecified organism 09/30/2023 MSSA bacteremia 09/30/2023 Encounters Date Type Department Care Team Description 05/15/2024 11:30 AM CDT Clinical Support [facility] [address], [address] [place] [address] Benign prostatic hyperplasia with urinary retention 05/15/2024 Travel 04/17/2024 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 Never 10/02/2023 Q2: How many drinks containi ng alcohol do you have on a typical day when you are drinking? Patient does not drink Q3: How often do you have si x or more drinks on one occasion? Never 10/02/2023 Overall Financial Resource Strain (CARDIA) Answe r Date Recorded How hard is it for you to pa y for the very basics like food, housing, medical care, and heating? Not hard at all 10/02/2023 PHQ-2 Answer Date Recorded Patient Health Questionnaire-2 Score 0 12/18/2023 [facility] Occupat ional Health - Occupational Stress Questionnaire Answer Date Recorded Do you feel stress - tense, restless, nervous, or anxious, or unable to sleep at night because your mind is troubled all the time - these days? Not at all 10/02/2023 Hunger Vital Sign Answer Date Recorded Within the past 12 months, y ou worried that your food would run out before you got the money to buy more. Never true 10/02/19 24 Within the past 12 months, t he food you bought just didn't last and you didn't have money to get more. Never true 10/02/2023 PRAPARE - Transportation Answer Date Re corded In the past 12 months, has l ack of transportation kept you from medical appointments or from getting medications? No 09/06 In the past 12 months, has l ack of transportation kept you from meetings, work, or from getting things needed for daily living? No 10/02/2023 Housing Stability Vital Sign Answer Rafy e Recorded In the last 12 months, was t here a time when you were not able to pay the mortgage or rent on time? No 10/02/2023 In the last 12 months, how many places have you lived? 1 10/02/2023 In the last 12 months, was t here a time when you did not have a steady place to sleep or slept in a [place] [facility] (including now)? No 10/02/2023 Sex and Gender Information Value Date Recorded Sex Assigned at Not on file Legal Sex Male 4:03 PM CDT Gender Identity Not on file Sexual Orientation Not on file Last Filed Vital Signs Vital Sign Reading Time Taken Comments Blood Pressure 128/71 11/20/2023 11:31 AM CDT Pulse 66 11/20/2023 10:06 AM CDT Temperature 36.7 C (98 F) 11/20/2023 10:05 AM CDT Respiratory Rate 18 11/20/2023 10:05 AM CDT Oxygen Saturation 95% 11/20/2023 11:45 AM CDT Inhaled Oxygen Concentration - - Weight 74.8 kg (165 lb) 11/20/2023 10:00 AM CDT Height 175.3 cm (5' 9 ) 11/20/2023 10:00 AM CDT Body Mass Index 24.37 11/20/2023 10:00 AM CDT Plan of Treatment Upcoming Encounters Date Type Department Care Team (Late st Contact Info) Description 07/17/2024 11:30 AM CDT Clinical Support [facility] - Urology [address], [address] [place] [address] 08/16/2024 1:00 PM CDT Office Visit [facility] [address] [place] [address] [place] [address] [address] Health Maintenance Due Date Last Done Comments DTAP/TDAP/TD VACCINES (1 - Tdap) 1954 PNEUMOCOCCAL VACCINE 50+ (1 of 2 - PCV) 1954 HEPATITIS B VACCINE (1 of 3 - Risk Dialysis 4-dose series) 1957 ZOSTER VACCINE (1 of 2) 11/19/1987 Respiratory Syncytial Virus (RSV) Vaccine Pt: or over 60 yrs (1 - 1-dose 75+ series) 2012 COVID-19 VACCINE (4 - season) 2023 12/06/2020, 06/10/2020, 05/20/2020 DEPRESSION SCREENING 03/08/2024 MEDICARE AWV CALENDAR YEAR 2024 INFLUENZA VACCINE (Season Ended) 2024 12/06/2020, 12/27/2018, 11/29/2017, Additional history exists HIB VACCINE Aged Out No longer eligi ble based on patient's age to complete this topic HPV VACCINE Aged Out No longer eligi ble based on patient's age to complete this topic MENINGOCOCCAL (Group B) VACCINE SHARED DECISION-MAKING Aged Out No longer eligible based on patient's age to complete this topic MENINGOCOCCAL GROUPS A/C/Y/W VACCINE Aged Out No longer eligible based on patient's age to complete this topic Insurance A[employer] MEDICARE ADV Advance Directives * Full Code (Latest Code Status on File) Date Activated Date Inactivated Comments 11/20/2023 5:34 PM 11/23/2023 10:51 AM * Full Code Date Activated Date Inactivated Comments 10/01/2023 10:39 PM 11/03/2023 8:19 PM Care Teams Retail Reset Merchandiser Relationship Specialty Start Date End Date Ren Fraire MD [address] [place] [address] PCP - General Internal Medicine 10/04/23
--- OUTSIDE RECORDS SUMMARY | 2024-07-09 14:53 | XMS_ITS | Clinical Summary ---
Author Organization [facility] Address [address] [place] [address] Care Team Providers Care Chimney Builder Helper Name Role Phone Ren Fraire MD Primary Care Provider + Allergies Active Allergy Reactions Criticality Noted Date Comments Venom-Honey Bee Anaphylaxis High 09/25/2023 Medications tadalafil (CIALIS) 20 mg tablet take 1 tablet (20MG) by ORAL route every day as needed 3 3 1 Active atorvastatin (LIPITOR) 40 mg tablet take 1 tablet by oral route every day 90 3 5 Active multivitamin tablet tablet Take according to [id number] package directions 0 0 8 Active coenzyme Q10 (CO Q-10) 100 mg capsule Take one by mouth two times per day 200 0 0 Active tamsulosin (FLOMAX) 0.4 mg extended release capsuleIndicat ions:Calculus of other lower urinary tract location Take 1 capsule (0.4 mg total) by mouth daily for 10 days Take as directed to help urine flow and propel kidney stones. Collaborating physician Romulo Frost MD 10 capsule 4 Active ketorolac (TORADOL) 10 mg tabletIndicati ons:Calculus of other lower urinary tract location,Cysti tis Take 1 tablet (10 mg total) by mouth every 6 (six) hours as needed for pain Collaborating physician Romulo Frost MD 20 tablet 4 Active traMADoL (ULTRAM) 50 mg tabletIndicati ons:Calculus of other lower urinary tract location,Cysti tis Take 1 tablet (50 mg total) by mouth every 6 (six) hours as needed for pain P.r.n. pain not relieved by ketorolac alone. Take with food. Collaborating physician Romulo Frost MD 20 tablet 4 Active aspirin 81 mg chewable tablet Take 1 tablet (81 mg total) by mouth daily Active Active Problems Problem Noted Date Diagnosed Date Bacteremia 09/30/2023 ROB (acute kidney injury) 09/25/2023 Urolith 09/23/2023 Cystitis 09/23/2023 Family history of colon cancer in father 022 Overview (07/09/2021): Added automatically from request for surgery [id number] Diverticulitis of colon 09/19/2013 Overview (06/12/2016): DVRTCLI COLON W/O HMRHG Vitamin D deficiency 07/22/2013 Overview (06/10/2016): VITAMIN D DEFICIENCY NOS Erythrocytosis 07/22/2013 Overview (06/11/2016): Erythrocytosis Osteoporosis 01/18/2012 Overview (06/11/2016): Osteoporosis 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 (06/10/2016): Umbilical hernia Immunizations Immunization Administration Dates Next Due Influenza, Trivalent, High D ose, Split, Preservative Free, Intramuscular 02/07/2016,01/28/2015,12/04/2013 Influenza, Trivalent, IM (MDV) 4,01/06/2013,11/06/2012,11/30,12/24/2010 Influenza, Unspecified 12/16/2016 Pneumococcal Conjugate PCV 13 05/16/2012 Pneumococcal Polysaccharide PPV23 04/23/2008 Td, adsorbed 04/23/2008 Tdap 11/20/2021,10/20/2019 ZOSTER LIVE 01/02/2009 Surgical History Surgery Date Site/Laterality Comments KNEE SURGERY 1982 R knee surgery OTHER SURGICAL HISTORY ER - Broken Left Hip : [facility] OTHER SURGICAL HISTORY 1981 right knee realignment OTHER SURGICAL HISTORY 2011 left hip pinned OTHER SURGICAL HISTORY 2012 repair umbilical hernia with mesh COLONOSCOPY FLUORO GUIDED ASPIRATION SHOULDER LEFT 09/30/2023 Left Medical History Medical History Date Comments Hyperlipidemia Hyperlipidemia Hx Other Medical 05/30/2011 ER - Broken Lef t Hip Hx Other Medical 06/01/2011 Pinned Left Hip Hx Other Medical 04/2012 Hernia repair, umbilical Family History Medical History Relation Name Comments Colon cancer Father Cancer, colon; Lung cancer Father Cancer, lung; / Cancer, lung; Diabetes Maternal Grandfather Diabete s mellitus; Other Mother old age; Cause of : old age Diabetes Mother's Sister Diabetes dhaval litus; Colon cancer Other 1 Family history of Cancer, colon; Other Other 2 No family histo ry of Coronary artery disease; Other Other 3 No family histo ry of Diabetes mellitus; Other Other 4 No family histo ry of Hypertension; Relation Name Status Comments Father Alive Maternal Grandfather Mother Mother's Sister Other 1 Other 2 Other 3 Other 4 Social History Tobacco Use Types Packs/Day Years Used Date Smoking Tobacco: Never Smokeless Tobacco: Never Tobacco Cessation:Counseling Given: Not Answered Alcohol Use Standard Drinks/Week Comments No 0 [...] on file 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 Gender Identity Not on file Sexual Orientation Not on file Obstetrics History Last Filed Vital Signs Vital Sign Reading Time Taken Comments Blood Pressure 127/61 10/01/2023 7:35 PM CDT Pulse 88 10/01/2023 7:35 PM CDT Temperature 37 C (98.6 F) 10/01/2023 7:35 PM CDT Respiratory Rate 22 10/01/2023 7:35 PM CDT Oxygen Saturation 96% 10/01/2023 7:35 PM CDT Inhaled Oxygen Concentration - - Weight 85 kg (187 lb 8 oz) 10/01/2023 6:00 AM CD T Height 175.3 cm (5' 9 ) 09/28/2023 1:08 PM CDT Body Mass Index 27.69 09/28/2023 1:08 PM CDT Plan of Treatment Health Maintenance Due Date Last Done Comments Depression Screening 1935 Hepatitis B Screening 11[birth year]19/1953 Well Visit 65+ 2002 Zoster Vaccine (2 of 3) 02/27/2009 01/02/2009 Covid-19 Vaccine (3 - 2023-2 5 season) 2023 06/10/2020, 05/20/2020 Influenza Vaccine (#1) 2023 9, 11/29/2017, 12/16/2016, Additional history exists Fall Risk Assessment 09/30/2024 10/01/2023 DTaP/Tdap/Td Vaccine (3 - Td or Tdap) 11/21/2031 11/20/2021, 10/20/2019, 04/23/2008 Pneumococcal vaccine 65+ Completed 05/16/2012, 04/08 Insurance [facility] MEDICARE ADVANTAGE [facility]IC[facility] Address: [facility] [address] [place] [address] UHC MEDICARE ADVANTAGE [facility] MEDICARE Address: [address] [address] [place] [address] [facility] MEDICARE [facility] Address: [facility] [id number] [place] [phone] [facility] MEDICARE [facility] Address: [facility] [id number] [place] [phone] Advance Directives For more information, please contact: [phone] * Full Code (Latest Code Status on File) Date Activated Date Inactivated Comments 09/25/2023 6:46 PM 10/02/2023 1:32 AM * Full Code Date Activated Date Inactivated Comments 08/12/2021 8:13 AM 08/12/2021 2:33 PM * Full Code Date Activated Date Inactivated Comments 08/12/2021 8:13 AM 08/12/2021 8:13 AM Care Teams Chimney Builder Helper Relationship Specialty Start Date End Date Ren Fraire MD [address] [place] [address] PCP - General 06/05/16
--- OUTSIDE RECORDS SUMMARY | 2024-07-09 14:53 | XMS_ITS | Referral Summary ---
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 Gender Identity Not on file Sexual Orientation [...] 09/28/2023 1:08 PM CDT Plan of Treatment Not on file Insurance [facility] MEDICARE ADVANTAGE UHC MEDICARE ADVANTAGE [employer] MEDICARE [facility] MEDICARE Advance Directives For more information, please contact: [phone] * Full Code (Latest Code Status on File) Date Activated Date Inactivated Comments 09/25/2023 6:46 PM 10/02/2023 1:32 AM * Full Code Date Activated Date Inactivated Comments 08/12/2021 8:13 AM 08/12/2021 2:33 PM * Full Code Date Activated Date Inactivated Comments 08/12/2021 8:13 AM 08/12/2021 8:13 AM Care Teams Luggage Attendant Relationship Specialty Start Date End Date Ren Fraire MD [address] [place] [address] PCP - General 06/05/16
--- OUTSIDE RECORDS SUMMARY | 2024-07-09 14:53 | XMS_ITS | Encounter Summary ---
Author Organization [facility] Address [address] [place] [address] [place] [address] Care Team Providers Care Social Service Worker Name Role Phone Ren Fraire MD Primary Care Provider [phone] Encounter Details Date Type Department Care Team (Late st Contact Info) Description 11/26/2023 [facility] Outpatient Visit [facility] - Urology [address], [address] [place] [address] Adriana Estrada PA-C [address] [place] [address] Social History Tobacco Use Types Packs/Day Years Used Date Smoking Tobacco: Never Smokeless Tobacco: Never Alcohol Use Standard Drinks/Week Comments Not Currently [...] and heating? Not hard at all 10/02/2023 [employer] [facility] Occupat ional Health - Occupational Stress [...] place to sleep or slept in a [facility] (including now)? No 10/02/2023 Sex and Gender Information Value Date Recorded Sex Assigned at Not on file Legal Sex Male 4:03 PM CDT Gender Identity Not on file Sexual Orientation Not on file documented as of this encounter Functional Status * Is person deaf or have serious hearing difficulty? Answer Date of Assessment Author No 10/04/2023 8:54 AM CDT Bandar Kim RN * Is person blind or have serious difficulty seeing? Answer Date of Assessment Author No 10/04/2023 8:54 AM CDT Bandar Kim RN * Does person have serious difficulty walking/climbing stairs? Answer Date of Assessment Author No 10/04/2023 8:54 AM ISABELT Bandar Kim RN * Does person have difficulty dressing/bathing? Answer Date of Assessment Author No 10/04/2023 8:54 AM ISABELT Bandar Kim RN * Does person have difficulty doing errands alone? Answer Date of Assessment Author No 10/04/2023 8:54 AM CDT Bandar Kim RN documented as of this encounter Mental Status * Does person have difficulty concentrating/remembering/making decisions? Answer Entry Date Author No 10/04/2023 8:54 AM CDT Bandar Kim RN documented in this encounter Plan of Treatment Upcoming Encounters Date Type Department Care Team (Late st Contact Info) Description 07/17/2024 11:30 AM CDT Clinical Support [facility] [address], [address] [place] [address] 08/16/2024 1:00 PM CDT Office Visit [facility] [address], [address] [place] [address] [place] [address] [place] [address] documented as of this encounter Visit Diagnoses Not on filedocumented in this encounter Care Teams Social Service Worker Relationship Specialty Start Date End Date Ren Fraire MD [address] [place] [address] PCP - General Internal Medicine 10/04/23 documented as of this encounter
--- OUTSIDE RECORDS SUMMARY | 2024-07-09 14:54 | XMS_ITS | Clinical Summary ---
Author Organization [facility] Address [address] [place] [address] Care Team Providers Care Fire Equipment Inspector Helper Name Role Phone Ren Fraire Primary Care Provider Allergies Active Allergy Reactions Criticality Noted Date Comments Bee Venom Anaphylaxis High 09/25/2023 Medications Coenzyme Q10 100 MG capsule Take 1 capsule (100 mg total) by mouth in the morning and 1 capsule (100 mg total) before bedtime. Active Multiple Vitamin (MULTIVITAMIN ADULT PO) Take 1 tablet by mouth daily with breakfast. Active lidocaine (LIDOCARE) 4 % patch patch Place 2 patches on the skin in the morning. 11/20/2023 Active atorvastatin (LIPITOR) 40 MG tablet Take 1 tablet (40 mg total) by mouth nightly. 30 tablet 11/21/2023 Active bumetanide (BUMEX) 2 MG tablet Take 1 tablet (2 mg total) by mouth in the morning. 30 tablet 11/22/2023 Active finasteride (PROSCAR) 5 MG tablet Take 1 tablet (5 mg total) by mouth in the morning. 30 tablet 11/22/2023 Active metoprolol tartrate (LOPRESSOR) 25 MG tablet Take 1 tablet (25 mg total) by mouth in the morning and 1 tablet (25 mg total) before bedtime. 60 tablet 11/21/2023 Active Sevelamer Carbonate (RENVELA) 0.8 g pack Take 1 packet (800 mg total) by mouth in the morning and 1 packet (800 mg total) at noon and 1 packet (800 mg total) in the evening. Take before meals. 90 packet 11/21/2023 Active warfarin 2.5 MG tablet Take 1 tablet (2.5 mg total) by mouth in the evening. Take as directed per After Visit Summary.. 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 Urolithiasis 11/04/2023 Immunizations Immunization Administration Dates Next Due Influenza, Unspecified 12/06/2020 Pfizer SARS-CoV-2 Vaccination 12/06/2020 Family History Medical History Relation Name Comments Cancer Father Relation Name Status Comments Father Social History Tobacco Use Types Packs/Day Years Used Date Smoking Tobacco: Never Smokeless Tobacco: Never Tobacco Cessation:Counseling Given: Not Answered Alcohol Use Standard Drinks/Week Comments Never 0 (1 standard drink = 0.6 oz pur e alcohol) [facility] Utilities Answer Date Recorded In the past 12 months has e electric, gas, oil, or water company threatened to shut off services in your home? No 11/04/2023 Social Connection and Isolat ion Panel [NHANES] Answer Date Recorded In a typical week, how many times do you talk on the phone with family, friends, or neighbors? More than three times a week 11/04/2023 How often do you get togethe r with friends or relatives? More than three times a week 11/04/2023 How often do you attend chur ch or sabianism services? 1 to 4 times per year 11/04/2023 Do you belong to any clubs o r organizations such as temple groups, unions, fraternal or athletic groups, or school groups? No 11/04/2023 How often do you attend meet ings of the clubs or organizations you belong to? Never 11/04/2023 Are you , , di vorced, , never , or living with a partner? 11/04/2023 AUDIT-C Answer Date Recorded Q1: How often do you have a drink containing alcohol? Never 11/03/2023 Q2: How many drinks containi ng alcohol do you have on a typical day when you are drinking? Patient does not drink Q3: How often do you have si x or more drinks on one occasion? Never 11/03/2023 Overall Financial Resource Strain (CARDIA) Answe r Date Recorded How hard is it for you to pa y for the very basics like food, housing, medical care, and heating? Not hard at all 11/04/2023 [facility] - Occupational Stress Questionnaire Answer Date Recorded Do you feel stress - tense, restless, nervous, or anxious, or unable to sleep at night because your mind is troubled all the time - these days? Not at all 11/21/2023 Hunger Vital Sign Answer Date Recorded Within the past 12 months, y ou worried that your food would run out before you got the money to buy more. Never true 11/04/19 24 Within the past 12 months, t he food you bought just didn't last and you didn't have money to get more. Never true 11/04/2023 Housing Stability Vital Sign Answer Rafy e Recorded In the last 12 months, was t here a time when you were not able to pay the mortgage or rent on time? No 11/04/2023 In the past 12 months, how m any times have you moved where you were living? 0 11/04/2023 At any time in the past 12 m [facility], were you homeless or living in a custodial (including now)? No 11/04/2023 Domestic Abuse Assessment Answer Date R ecorded Do you feel safe in your relationships at home? Yes 11/03/2023 Physical Abuse Denies 11/03/2023 HRSN Domestic Abuse - Type of Abuse Not on file 11/03/2023 HRSN Domestic Abuse - Time Frame Not on file 11/03/2023 HRSN Domestic Abuse - Signs and Symptoms Not on file 11/03/2023 Verbal Abuse Denies 11/03/2023 HRSN Domestic Abuse - Reported To Not on file 11/03/2023 SDOH Transportation Source Answer Da te Recorded Has lack of transportation k ept you from medical appointments or from getting medications? No 11/22/2023 Has lack of transportation k ept you from meetings, work, or from getting things needed for daily living? No 11/22/2023 HRSN Depression PHQ-2 Answer Date Recor ded Feeling down, depressed, or hopeless 0 11/21/2023 Little interest or pleasure in doing things 0 11/21/2023 Sex and Gender Information Value Date Recorded Sex Assigned at Not on file Legal Sex Male 2:55 PM EDT Gender Identity Not on file Sexual Orientation Not on file Last Filed Vital Signs Vital Sign Reading Time Taken Comments Blood Pressure 139/74 11/21/2023 7:19 AM CDT Pulse 67 11/21/2023 7:19 AM CDT Temperature 36.7 C (98.1 F) 11/21/2023 7:19 AM CDT Respiratory Rate 18 11/21/2023 7:19 AM CDT Oxygen Saturation 98% 11/21/2023 7:19 AM CDT Inhaled Oxygen Concentration - - Weight 78 kg (172 lb) 11/08/2023 4:07 AM CDT Height 175.3 cm (5' 9 ) 11/03/2023 8:32 PM CDT Body Mass Index 25.4 11/03/2023 8:32 PM CDT Plan of Treatment Health Maintenance Due Date Last Done Comments Annual Visit Topic 1936 Pneumococcal Vaccine: 65+ Years (1 of 4 - PCV) 11/19/1987 DTaP/Tdap/Td Vaccines (4 - T d or Tdap) 11/21/2031 11/20/2021, 10/20/2019, 04/23/2008 HIB Vaccines Aged Out No longer eligi ble based on patient's age to complete this topic HPV Vaccines Aged Out No longer eligi ble based on patient's age to complete this topic Hepatitis A Vaccines Aged Out No long er eligible based on patient's age to complete this topic Hepatitis B Vaccines Aged Out No long er eligible based on patient's age to complete this topic IPV Vaccines Aged Out No longer eligi ble based on patient's age to complete this topic Meningococcal Vaccine Aged Out No jennifer jyoti eligible based on patient's age to complete this topic Advance Directives * Full Resuscitation (Latest Code Status on File) Date Activated Date Inactivated Comments 11/03/2023 11:57 PM 11/21/2023 2:43 PM Question Answer Comments I have discussed this order with the patient or his/her surrogate and have received informed consent. Yes Care Teams Fire Equipment Inspector Helper Relationship Specialty Start Date End Date Ren Fraire [address] [place] [address] PCP - General 11/03/23
[2024-07-09 15:02] VITALS: BP 159/89; PULSE 74; RESP 16; TEMP 36.3; O2SAT 98
--- NOTE | 2024-07-09 15:50 | PC.NURSE ---
CATHETER REMOVED, BALLOON EMPTIED OF 10ml OF YELLOW COLORED LIQUID, PUSS AND BLOOD PRESET ON CATHETER. CATHETER BALLOON INTACT UPON REMOVAL. COUDE CATHETER PLACED WITH GREAT TOLERANCE, AND NO RESISTANCE DURING INSERTION. BLOOD CLOTS PRESENT IN URINE OUTPUT POST CATHETER INSERTION. URINE SAMPLE COLLECTED AND SENT TO LAB AT THIS TIME
--- NOTE | 2024-07-09 15:51 | ED_ITS ---
HPI - Male Genitourinary General Chief complaint: Urogenital-Male Stated complaint: blocked reyes catheter Time Seen by Provider: 07/09/24 14:54 History of Present Illness HPI Narrative: Patient is an 88-year-old male who presents ER with Reyes catheter complications. He is scheduled to have it exchanged however last night he began to not drain. He has been having some lower abdominal pain. No fevers or chills. No blood in urine. Related Data Home Medications ?Medication ?Instructions ?Recorded ?Confirmed ?Last Taken ?Type atorvastatin 40 mg tablet 40 mg PO HS 12/28/23 07/05/24 02/16/24 History bumetanide 2 mg tablet 2 mg PO DAILY 12/28/23 07/05/24 02/16/24 History coenzyme Q10 100 mg capsule 200 mg PO DAILY 12/28/23 07/05/24 02/13/24 History (CoQ-10) finasteride 5 mg tablet 5 mg PO DAILY 12/28/23 07/05/24 02/16/24 History metoprolol tartrate 25 mg tablet 25 mg PO BID 12/28/23 07/05/24 02/17/24 History multivitamin 1 tablet PO DAILY 02/07/24 07/05/24 02/13/24 History amlodipine 2.5 mg tablet 2.5 mg PO DAILY 03/29/24 07/05/24 Unknown History apixaban 2.5 mg tablet (Eliquis) 2.5 mg PO ONCE 03/29/24 07/05/24 Unknown History ferrous sulfate 325 mg (65 mg 325 mg PO DAILY 07/05/24 07/05/24 Unknown History iron) tablet (Feosol) levothyroxine 25 mcg tablet 25 mcg PO DAILY 07/05/24 07/05/24 Unknown History Allergies Allergy/AdvReac Type Severity Reaction Status Date / Time bee venom protein (honey bee) Allergy Severe Anaphylaxis Verified 07/05/24 11:23 Review of Systems Constitutional: Constitutional: Reports no additional constitutional complaints Gastrointestinal: Gastrointestinal: Reports no additional gastrointestinal complaints Genitourinary: Genitourinary: Reports no additional male genitourinary complaints PMFSH Past Medical History Medical History Fracture of left hip requiring operative repair Hyperlipidemia Nephrolithiasis BPH (benign prostatic hyperplasia) CAD (coronary artery disease) 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 Septic joint of left shoulder region DVT (deep venous thrombosis) Surgical History Surgical History History of arthroplasty of left shoulder H/O umbilical hernia repair S/P hemodialysis catheter insertion Social History Social History (Updated 07/05/24 @ 11:23 by Noemi Shen MA) Smoking status: Never smoker Alcohol intake: never Substance use: never Do You Feel Safe in your Home?: Yes Lack of Transportation: No Lack of Food: Never True Current Housing: I Have Housing Concerned About Future Housing: No Difficulty Paying Gas/Electric Bills: No Difficulty Paying for Meds: No Currently Unemployed: No Living arrangements: with family Gender identity (if verbalized by the patient): Male Spiritual care concerns: No Exam Narrative: GENERAL: Well-appearing, well-nourished, and in no acute distress. HEAD: Normocephalic, atraumatic. ENT: Mucous membranes moist. ABDOMEN: Soft, mild suprapubic tenderness, nondistended EXTREMITIES: Normal range of motion. No edema. SKIN: Warm, dry, no rash. NEURO: Alert and oriented x3. PSYCH: Normal mood and affect. Course Course Emergency Course: UA concerning for infection. Discharge home with antibiotic. Follow-up with urology. Vital Signs Vital signs: Vital Signs Temperature 97.4 F L 07/09/24 15:02 Pulse Rate 74 07/09/24 15:02 Respiratory Rate 16 07/09/24 15:02 Blood Pressure 159/89 H 07/09/24 15:02 Pulse Oximetry 98 07/09/24 15:02 Oxygen Delivery Room Air 07/09/24 15:02 Temperature 97.4 F L 07/09/24 15:02 Pulse Rate 74 07/09/24 15:02 Respiratory Rate 16 07/09/24 15:02 Blood Pressure 159/89 H 07/09/24 15:02 Pulse Oximetry 98 07/09/24 15:02 Oxygen Delivery Room Air 07/09/24 15:02 MDM - Male Genitourinary Lab Data Labs: Lab Results 07/09/24 Range/Units 15:56 Urine Color Yellow (Yellow) Urine Appearance Turbid H (Clear) Urine pH 8.0 (5.0-9.0) Ur Specific [place] 1.013 (1.001-1.035) Urine Protein 2+ H (Negative) mg/dL Urine Glucose (UA) Negative (Negative) mg/dL Urine Ketones Negative (Negative) mg/dL Ur Blood (Man) 2+ H (Negative) Urine Nitrate Negative (Negative) Urine Bilirubin Negative (Negative) Urine Urobilinogen 0.2 (<2.0) mg/dL Leukocyte Esterase Rfl 3+ H (Negative) DANIELA/UL Urine RBC >100 H (0-2) /hpf Urine WBC >100 H (0-3) /hpf Ur Squamous Epith Cells None seen (Few) /hpf Urine Bacteria 4+ /hpf Urine Casts 3-5 Discharge Plan Discharge Clinical Impression: Complication, blocked Reyes catheter, Acute UTI Patient Disposition: Home Condition: Stable Instructions: Antibiotic Form Additional Instructions: You should return to the emergency department if you develop severe nausea and vomiting and are unable to keep liquids down, if you develop severe back/flank or stomach pain, or if your symptoms are not clearly improving at home. Patient Language: Trinidadian Prescriptions: New cefuroxime axetil 500 mg tablet 500 mg PO BID Qty: 20 0RF No Action amlodipine 2.5 mg tablet 2.5 mg PO DAILY Eliquis 2.5 mg tablet 2.5 mg PO ONCE levothyroxine 25 mcg tablet 25 mcg PO DAILY ferrous sulfate [Feosol] 325 mg (65 mg iron) tablet 325 mg PO DAILY atorvastatin 40 mg tablet 40 mg PO HS bumetanide 2 mg tablet 2 mg PO DAILY finasteride 5 mg tablet 5 mg PO DAILY coenzyme Q10 [CoQ-10] 100 mg Capsule 200 mg PO DAILY metoprolol tartrate 25 mg tablet 25 mg PO BID tramadol 50 mg tablet 50 mg PO Q6H PRN (Reason: pain) Qty: 10 0RF multivitamin Tablet 1 tablet PO DAILY Follow-up/Referrals: Juno,Jayden Patrick MD [Primary Care Provider] -
[2024-07-09 16:08] LABS: Add Urine Microscopic? YES; Appearance Urine Turbid (Clear); Bacteria Urine 4+ /hpf; Bilirubin Urine Negative (Negative); Blood Urine 2+ (Negative); Color Urine Yellow (Yellow); Glucose Urine UA Negative (Negative); Ketones Urine Negative (Negative); Leukocyte Esterase Ur 3+ LEU/UL (Negative); Nitrate Urine Negative (Negative); Protein Urine 2+ mg/dL (Negative); RBC Urine >100 /hpf (0-2); Specific Grav Ur 1.013 (1.001-1.035); Squamous Epithelial Cell Urine None Seen /hpf (Few); Urobilinogen Urine 0.2 mg/dL (<2.0); WBC Urine >100 /hpf (0-3)
== END 2024-07-09 17:35 | disposition home or self-care (01) ==
PROVIDERS: Emergency Provider Emergency Medicine; PCP Internal Medicine
DX: T83.098A Other mechanical complication of other urinary catheter, initial encounter (principal); N39.0 Urinary tract infection, site not specified; E78.5 Hyperlipidemia, unspecified; N40.0 Benign prostatic hyperplasia without lower urinary tract symptoms; I25.10 Atherosclerotic heart disease of native coronary artery without angina pectoris; N18.6 End stage renal disease; Z99.2 Dependence on renal dialysis; Z86.718 Personal history of other venous thrombosis and embolism
CPT/HCPCS: 81001; 87077; 87086; 87186; 99283

== ENCOUNTER 2024-08-09 13:45 | Outpatient (CLI) | payer MEDICARE, SELFPAY ==
--- NOTE | ~2024-08-09 | US_ITS ---
US renal BI 08/09/2024 14:54 Procedure: Realtime transabdominal ultrasound of the kidneys and bladder. Indication: Chronic kidney disease stage IV Comparison: No prior studies for comparison. Findings: Renal echotexture is normal bilaterally without hydronephrosis, contour deforming mass or r enal calculus. There is a left renal cyst measuring 3 cm. There is mildly increased renal cortical ec hotexture. The right kidney measures 10.1 cm and left kidney measures 10 cm. There is a Delgadillo cathete r in the bladder lumen. Bladder wall appears mildly thickened posteriorly. There are bladder divertic dillon. Bladder wall appears trabeculated. Impression: 1: Left renal cyst measuring 3 cm. 2: Mildly thickened and trabeculated bladder wall with bladder diverticula. Trace nonspecific free f luid posterior to the bladder lumen. Reviewed, dictated and finalized at location A. Impression: 1: Left renal cyst measuring 3 cm. 2: Mildly thickened and trabeculated bladder wall with bladder diverticula. Tr jordan nonspecific free fluid posterior to the bladder lumen.
--- OUTSIDE RECORDS SUMMARY | 2024-08-09 13:53 | XMS_ITS | Clinical Summary ---
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 Gender Identity Not on file Sexual Orientation [...] AM CD T Height 175.3 cm (5' 9) 09/28/2023 1:08 PM CDT Body Mass Index 27.69 09/28/2023 1:08 PM CDT Plan of Treatment Health Maintenance Due Date Last Done Comments Depression Screening 1935 Hepatitis B Screening 11[birth year]19/1953 Well Visit 65+ 2002 Zoster Vaccine (2 of 3) 02/27/2009 01/02/2009 Covid-19 Vaccine ( - 2023-2 5 season) 2023 06/10/2020, 05/20/2020 Fall Risk Assessment 09/30/2024 10/01/2023 Influenza Vaccine (Season Ended) 2024 12/27/2018, 11/29/2017, 12/16/2016, Additional history exists DTaP/Tdap/Td Vaccine (3 - Td or Tdap) 11/21/2031 11/20/2021, 10/20/2019, 04/23/2008 Pneumococcal vaccine 65+ Completed 05/16/2012, 04/08 Insurance [facility] MEDICARE ADVANTAGE [facility] Address: [facility] [address] [place] [address] UHC MEDICARE ADVANTAGE [facility] MEDIC[facility] Address: [address] [address] [place] [address] [facility]LY [facility] MEDICARE [facility] Address: [facility] [id number] [place] [id number] [facility] MEDICARE [facility] Address: [facility] [id number] [place] [phone] Advance Directives For more information, please contact: [phone] * Full Code (Latest Code Status on File) Date Activated Date Inactivated Comments 09/25/2023 6:46 PM 10/02/2023 1:32 AM * Full Code Date Activated Date Inactivated Comments 08/12/2021 8:13 AM 08/12/2021 2:33 PM * Full Code Date Activated Date Inactivated Comments 08/12/2021 8:13 AM 08/12/2021 8:13 AM Care Teams Electrical Logging Operator Relationship Specialty Start Date End Date Ren Fraire MD [address] [facility] [place] [address] PCP - General 06/05/16
--- OUTSIDE RECORDS SUMMARY | 2024-08-09 13:53 | XMS_ITS | Referral Summary ---
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 Gender Identity Not on file Sexual Orientation [...] Plan of Treatment Not on file Insurance [facility] MEDICARE ADVANTAGE [facility] MEDIC[facility] Address: [address] [address] [place] [address] UHC MEDICARE ADVANTAGE [employer] MEDICARE [facility] MEDICARE Advance Directives For more information, please contact: [phone] * Full Code (Latest Code Status on File) Date Activated Date Inactivated Comments 09/25/2023 6:46 PM 10/02/2023 1:32 AM * Full Code Date Activated Date Inactivated Comments 08/12/2021 8:13 AM 08/12/2021 2:33 PM * Full Code Date Activated Date Inactivated Comments 08/12/2021 8:13 AM 08/12/2021 8:13 AM Care Teams Filling Hand Relationship Specialty Start Date End Date Ren Fraire MD [address] [facility] [place] [place] [address] PCP - General 06/05/16
--- OUTSIDE RECORDS SUMMARY | 2024-08-09 13:53 | XMS_ITS | Encounter Summary ---
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 [facility] who [facility] [...] Yes Is the patient established with any [facility] providers?: No Problem list and [...] on filedocumented in this encounter Care Teams Heel Cementer Machine Relationship Specialty Start Date End Date Ren Fraire MD [address] [facility] [place] [address] PCP - General 06/05/16 documented as of this encounter
--- OUTSIDE RECORDS SUMMARY | 2024-08-09 13:53 | XMS_ITS | Encounter Summary ---
Author Organization [facility] Address [address] [place] [address] [place] [address] Care Team Providers Care Engine Buildup Mechanic Name Role Phone Ren Fraire MD Primary Care Provider [phone] Encounter Details Date Type Department Care Team (Late st Contact Info) Description 11/26/2023 [facility] Outpatient Visit [facility] - Urology [address], [address] [place] [address] Adriana Estrada PA-C [address] [place] [address] Social History Tobacco Use Types [...] and heating? Not hard at all 10/02/2023 [facility] [place] Occupat [facility] Health - Occupational Stress [...] place to sleep or slept in a halfway (including now)? No 10/02/2023 Sex and Gender [...] Assessment Author No 10/04/2023 8:54 AM CDT Banadr Kim RN * Does person have serious [...] Entry Date Author No 10/04/2023 8:54 AM ISABELT Bandar Kim RN documented in this encounter Plan of Treatment Upcoming Encounters Date Type Department Care Team (Late st Contact Info) Description 08/16/2024 1:00 PM CDT Office Visit [facility] - Urology [address] , [address] [place] [address] [place] [address] [place] [address] documented as of this encounter Visit Diagnoses Not on filedocumented in this encounter Care Teams Engine Buildup Mechanic Relationship Specialty Start Date End Date Ren Fraire MD [address] [place] [address] PCP - General Internal Medicine 10/04/23 documented as of this encounter
--- OUTSIDE RECORDS SUMMARY | 2024-08-09 13:53 | XMS_ITS | Clinical Summary ---
Author Organization [facility] Address [address] [facility] [place] [address] Care Team Providers Care Sheet Pile Driver Operator Name Role Phone Ren Fraire MD Primary Care Provider [phone] Source Comments [facility],non-[facility] community hospital Affiliates and Associated Physician Practices is amultiple site organization consisting of ambulatory clinics and hospital sitesin [place], [place], [place] and [place]. This disclosure is being madepursuant to the Care Everywhere program and may not contain all information available regarding this patient. Last updated 17.[facility] [place] Allergies Active Allergy Reactions Criticality Noted Date [...] Description 05/15/2024 11:30 AM CDT Clinical Support [facility] - Urology [address], [address] [place] [address] Benign prostatic hyperplasia with urinary retention 05/15/2024 Travel from Last 3 Months Social History [...] Recorded Patient Health Questionnaire-2 Score 0 12/18/2023 [facility] [place] [facility] Health - Occupational Stress [...] place to sleep or slept in a fdc (including now)? No 10/02/2023 Sex and Gender [...] 10:00 AM CDT Height 175.3 cm (5' 9) 11/20/2023 10:00 AM CDT Body Mass Index 24.37 11/20/2023 10:00 AM CDT Plan of Treatment Upcoming Encounters Date Type Department Care Team (Late st Contact Info) Description 08/16/2024 1:00 PM CDT Office Visit [facility] - Urology [address], [address] [place] [address] [place] [address] [place] [address] Health Maintenance Due Date Last Done Comments DTAP/TDAP/TD VACCINES (1 - Tdap) 1954 PNEUMOCOCCAL VACCINE 50+ (1 of 2 - PCV) 1956 HEPATITIS B VACCINE (1 of 3 - Risk Dialysis 4-dose series) 1957 ZOSTER VACCINE (1 of 2) 11/19/1987 Respiratory Syncytial Virus (RSV) Vaccine Pt: or over 60 yrs (1 - 1-dose 75+ series) 2012 COVID-19 VACCINE ( season) 2023 12/06/2020, 06/10/2020, 05/20/2020 DEPRESSION SCREENING [...] 10:39 PM 11/03/2023 8:19 PM Care Teams Sheet Pile Driver Operator Relationship Specialty Start Date End Date Ren Fraire MD [address] [place] [address] PCP - General Internal Medicine 10/04/23
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
== END 2024-08-09 13:46 | disposition home or self-care (01) ==
PROVIDERS: PCP Internal Medicine; Visit Provider Internal Medicine Nephrology
DX: N28.1 Cyst of kidney, acquired (principal); N32.3 Diverticulum of bladder; N32.89 Other specified disorders of bladder; N18.4 Chronic kidney disease, stage 4 (severe)
CPT/HCPCS: 76775